=== PATIENT | female | born 1995 | race Caucasian/White ===

== ENCOUNTER 2024-07-18 08:58 | Inpatient (IN) | payer BC, MEDICAID ==
[~2024-07-18] VITALS: Ht 170.2 cm; Wt 73.7 kg
[2024-07-18] MEDS: KETOROLAC TROMETH 30 MG/ML 1ML VIAL IV ONE (09:22)
[2024-07-18] MEDS: LORazepam 2MG/ML-1ML VIAL IV ONE (09:22)
[2024-07-18] MEDS: SODIUM CHLORIDE 0.9% 1,000 ML IV ONE ×5 (09:22→18:04)
[2024-07-18] MEDS: ONDANSETRON HCL 4 MG/2 ML VIAL IV ONE (09:22)
--- NOTE | 2024-07-18 09:25 | ED.PDOC ---
General HPI Comments 29 year old female presents to the ED with chief complaint of flank pain. Patient reports that she has been experiencing 10/10 right sided flank pain since yesterday, worsening over time. Patient denies any dysuria, hematuria, abdominal pain, N/V/D, dizziness, fever, or chills. Chief Complaint: Flank Pain Time Seen by MD: 09:22 Primary Care Provider: MARKUS Reviewed notes: Nurses Notes, Medications, Allergies Allergies: Coded Allergies: NO KNOWN ALLERGIES (Unverified , 10/18/13) Information Source: Patient Mode of Arrival: Ambulatory Severity: Moderate Inability to void: None Timing: Days Duration: Since onset Prehospital treatment: None Onset: Spontaneous Symptoms: None History of: None Location: (R) Flank Modifying factors: None associated signs and symptoms: Flank Pain Past Medical History PAST MEDICAL HISTORY: Anxiety, Depression Surgical History: Denies all surgeries [employer] History: Denies all [employer] Hx Family History Family History: Reviewed,noncontributory to illness Social History Smoker: Cigarettes, Greater Than 1 Pack/Day Alcohol: Occasionally Drugs: Marijuana Lives In: Home Constitutional: denies: chills, diaphoresis, fatigue, fever, malaise, sweats, weakness, others EENTM: denies: blurred vision, double vision, ear bleeding, ear discharge, ear drainage, ear pain, ear ringing, eye pain, eye redness, hearing loss, mouth pa in, mouth swelling, nasal discharge, nose bleeding, nose congestion, nose pain, photophobia, tearing, throat pain, throat swelling, voice changes, others Respiratory: denies: cough, hemoptysis, orthopnea, SOB at rest, shortness of breath, SOB with excertion, stridor, wheezing, others Cardiovascular: denies: chest pain, dizzy spells, diaphoresis, Dyspnea on exertion, edema, irregular heart beat, left arm pain, lightheadedness, palpitations, PND, syncope, others Gastrointestinal: denies: abdomen distended, abdominal pain, blood streaked bowels, constipated, diarrhea, dysphagia, difficulty swallowing, hematemesis, melena, nausea, poor appetite, poor fluid intake, rectal bleeding, rectal pain, vomiting, others Genitourinary: reports: flank pain; denies: abnormal vagina bleeding, burning, dyspareunia, dysuria, frequency, hematuria, incontinence, pain, , vagina discharge, urgency, others Neurological: denies: dizziness, fainting, headache, left sided numbness, left sided weakness, numbness, paresthesia, pre-existing deficit, right sided numbness, right sided weakness, seizure, speech problems, tingling, tremors, weakness, others Musculoskeletal: denies: back pain, gout, joint pain, joint swelling, muscle pain, muscle stiffness, neck pain, others Integumetry: denies: bruises, change in color, change in hair/nails, dryness, laceration, lesions, lumps, rash, wounds, others Allergic/Immunocompromised: denies: Difficulty Healing, Frequent Infections, Hives, Itching, others Hematologic/Lymphatic: denies: anemia, blood clots, easy bleeding, easy bruisi ng, swollen glands, others Endocrine: denies: excessive hunger, excessive sweating, excessive thirst, exce ssive urination, flushing, intolerance to cold, intolerance to heat, unexplained weight gain, unexplained weight loss, others Psychiatric: denies: anxiety, bipolar disorder, depression, hopeless, panic disorder, schizophrenia, sleepless, suicidal, others All Other Systems: Reviewed and Negative Physical Exam General Appearance: Moderate Distress, Normal HEENT: Normal ENT Inspection, PERRL/EOMI Neck: Full Range of Motion, Non-Tender, Normal, Normal Inspection Respiratory: Chest Non-Tender, Lungs Clear, No Accessory Muscle Use, No Respiratory Distress, Normal Breath Sounds Cardiovascular: No Edema, No JVD, No Murmur, No Gallop, Normal Peripheral Pulses, Regular Rate/Rhythm Breast Exam: Deferred Gastrointestinal: No Organomegaly, No Pulsatile Mass, Normal Bowel Sounds, RLQ, Soft Genitalia: Deferred Pelvic: Deferred Rectal: Deferred Extremities: No calf tenderness, Normal capillary refill, Normal inspection, Normal range of motion, Non-tender, No pedal edema Musculoskeletal : Apperance: Normal Neurologic: Alert, serger II-XII nml as Tested, No Motor Deficits, Normal Affect, Normal Mood, No Sensory Deficits Cerebellar Function: NOT DONE Reflexes: NOT DONE Skin: Dry, Normal Color, Warm Peripheral Pulses: 3+ Radial (R), 3+ Radial (L) Lymphatic: No Adenopathy Was a procedure done? Was a procedure done?: No Differential Diagnosis Kidney stone (Female): Musculoskeletal pain, Urinary obstruction, Urolithiasis X-Ray, Labs, Meds, VS Vital Signs Date Time Temp Pulse Resp B/P (MAP) Pulse Ox O2 Delivery O2 Flow Rate FiO2 07/18/24 14:00 74 15 109/75 (86) 100 07/18/24 12:55 65 15 112/68 07/18/24 12:25 67 15 117/70 07/18/24 12:00 98.2 62 15 117/70 (86) 100 98.2 07/18/24 10:38 65 12 111/70 07/18/24 10:08 68 18 108/59 07/18/24 09:57 118/60 07/18/24 09:32 63 17 98 07/18/24 09:31 58 07/18/24 09:31 Room Air* 0 21 07/18/24 09:10 97.6 86 20 144/83 (103) 100 97.6 Lab Test 07/18/24 09:49 07/18/24 09:20 Range/Units White Blood Count 17.4 H 4.4-10.8 10^3/uL Red Blood Count 4.90 4.0-5.20 10^6/uL Hemoglobin 13.8 12.2-16.2 g/dL Hematocrit 41.1 36.0-46.0 % Mean Corpuscular Volume 84.0 80.0-100.0 fL Mean Corpuscular Hemoglobin 28.2 28.0-32.0 pg Mean Corpuscular Hemoglobin Concent 33.5 32.0-36.0 g/dL Red Cell Distribution Width 14.2 11.8-14.3 % Platelet Count 241 140-450 10^3/uL Mean Platelet Volume 7.7 6.9-10.8 fL Neutrophils (%) (Auto) 92.7 H 37.0-80.0 % Lymphocytes (%) (Auto) 5.4 L 10.0-50.0 % Monocytes (%) (Auto) 1.7 0.0-12.0 % Eosinophils (%) (Auto) 0.0 0.0-7.0 % Basophils (%) (Auto) 0.2 0.0-2.0 % Neutrophils # (Auto) 16.2 H 1.6-8.6 10 ^3/uL Lymphocytes # (Auto) 0.9 0.4-5.4 10 ^3/uL Monocytes # (Auto) 0.3 0-1.3 10 ^3/uL Eosinophils # (Auto) 0 0-0.8 10 ^3/uL Basophils # (Auto) 0 0-0.2 10 ^3/uL Nucleated Red Blood Cells 0.0 % Sodium Level 137 136-145 mmol/L Potassium Level 4.0 3.5-5.1 mmol/L Chloride Level 104 98-107 mmol/L Carbon Dioxide Level 25 20-31 mmol/L Anion Gap 8 5-15 Blood Urea Nitrogen 11 9-23 mg/dL Creatinine 0.79 0.550-1.02 mg/dL Glomerular Filtration Rate Calc 104 >90 mL/min BUN/Creatinine Ratio 13.9 10.0-20.0 Serum Glucose 123 H 74-106 mg/dL Calcium Level 9.4 8.7-10.4 mg/dL Urine Color Colorless Yellow Urine Clarity Clear Clear Urine pH 6.0 5.0-9.0 Urine Specific [place] 1.009 1.001-1.035 Urine Protein Negative Negative Urine Ketones Negative Negative Urine Blood Negative Negative /uL Urine Nitrite Negative Negative Urine Bilirubin Negative Negative Urine Urobilinogen Normal Negative mg/dL Urine Leukocyte Esterase Negative Negative /uL Urine RBC 1 0 - 4 /hpf Urine Microscopic WBC 1 0-5 /HPF Urine Squamous Epithelial Cells Few <5 /hpf Urine Bacteria Few H None Seen /hpf Urine Glucose Normal Normal mg/dL Urine Test Negative Negative Current Medications Medications (Trade) Dose Ordered Sig/Kishore Route Start Time Stop Time Status Last Admin Ketorolac Tromethamine (Toradol Injection) 30 mg ONCE ONCE IV 07/18/24 09:30 07/18/24 09:31 DC 07/18/24 09:22 Sodium Chloride 1,000 ml @ 1,000 mls/hr Q1H ONCE IV 07/18/24 09:30 07/18/24 10:29 DC 07/18/24 09:22 Ondansetron HCl (Zofran) 4 mg ONCE ONCE IV 07/18/24 09:30 07/18/24 09:31 DC 07/18/24 09:22 Lorazepam (Ativan Inj) 1 mg ONCE ONCE IV 07/18/24 09:30 07/18/24 09:31 DC 07/18/24 09:22 Sodium Chloride 1,000 ml @ 150 mls/hr Q6H40M ONCE IV 07/18/24 09:30 07/18/24 16:09 07/18/24 11:05 Furosemide (Lasix Injection) 20 mg ONCE ONCE IV 07/18/24 09:30 07/18/24 09:31 DC 07/18/24 09:57 Morphine Sulfate 4 mg ONCE ONCE IV 07/18/24 10:15 07/18/24 10:16 DC 07/18/24 10:08 Ceftriaxone Sodium 50 ml @ 100 mls/hr ONCE ONCE IV 07/18/24 10:30 07/18/24 10:59 DC 07/18/24 10:28 Hydromorphone HCl (Dilaudid Injection) 1 mg ONCE ONCE IV 07/18/24 12:15 07/18/24 12:16 DC 07/18/24 12:25 Sodium Chloride 1,000 ml @ 1,000 mls/hr Q1H ONCE IV 07/18/24 12:15 07/18/24 13:14 DC 07/18/24 13:15 CT Abd/Pel: FINDINGS: Lung bases: Lung bases are clear. Liver: Grossly unremarkable in its noncontrast enhanced appearance. No abnormal density or focal lesion identified. Biliary: No calcified gallstones or biliary ductal dilatation. Spleen: Unremarkable. Pancreas: Grossly unremarkable in its noncontrast enhanced appearance. Adrenal glands: Unremarkable. No mass. Kidneys: No hydronephrosis. No renal or ureteral calculi. Aorta/Vascular: No aneurysm or significant calcification. Retroperitoneum: No mass or lymphadenopathy. Bowel/mesentery: There are a few nonspecific mildly distended gas-filled loops of small mild gaseous distention of colon. No focal transition point to suggest small bowel obstruction. Appendix is visualized and appears unremarkable. Moderate stool in the colon. Pelvic organs: Uterus is anteverted. Suspected small amount of free fluid in the cul-de-sac. Bladder: Small locules of gas are seen in the anterior aspect of the bladder. Abdominal wall: No mass or hernia. Bones: No acute fracture or suspicious intraosseous lesion. IMPRESSION: 1. No hydronephrosis and no renal or ureteral calculi visualized. 2. Small locules of gas in the anterior aspect of the bladder. Gas-forming infection / cystitis not excluded. Correlate with clinical findings. 3. Moderate stool in the colon. There are mildly distended small bowel loops with no focal transition point to suggest small bowel obstruction. 4. Appendix is visualized and appears normal. 5. Small amount of free fluid in the cul-de-sac, likely physiologic. 6. Additional findings as detailed above. Patient alert. Complaining of severe pain. Denies . Vitals stable. Answering all questions. CT scan was done after patient cleared does not show any acute process. Small amount of free fluid in the cul-de-sac most likely physiologic. Check for ovary. There is gas-forming infection in the bladder. Establish intravenous access. Was given fluids. Was given pain medication. Explained to the patient. Continue monitoring. Ultrasound does not reveal any acute process. Pain from ovarian. Images Reviewed?: Images reviewed and evaluated by me Time of 1ST Reevaluation: 10:22 Reevaluation 1ST: Unchanged Patient Education/Counseling: Diagnosis, Treatment Family Education/Counseling: No Family Present Additional Information Previous visit documents reviewed: None The following tests were ordered, and results were reviewed by me: BMP, CBC, UA, CT Abd/Pel Additional Information was gathered from interviewing the following independent historians: None I reviewed and agreed with the following test results read by other providers: CT Abd/Pel I discussed treatment and results with medical personnel and: Patient Departure 1 Departure Time of Disposition: 13:03 Impression: Primary Impression: Acute abdominal pain Additional Impression: Nonspecific colitis Disposition: ADMITTED INPATIENT Admit to: Med Surg Condition: Guarded Critical Care Note Critical Care Time?: No Stability Stability form required: No Heart Score Heart Score: Heart Score Response (Comments) Value History N/A 0 EKG N/A 0 Age N/A 0 Risk Factors N/A 0 Troponin N/A 0 Total 0 I personally scribed for ARIANNA COBOS MD ([email or web address]) on 07/18/24 at 09:25. Electronically submitted by Juan Miguel Reynoso ([email or web address]). I personally scribed for ARIANNA COBOS MD ([email or web address]) on 07/18/24 at 09:52. Electronically submitted by Juan Miguel Reynoso ([email or web address]). I personally scribed for ARIANNA COBOS MD ([email or web address]) on 07/18/24 at 10:19. Electronically submitted by Juan Miguel Reynoso ([email or web address]). ARIANNA COBOS MD Jul 18, 2024 09:25
[2024-07-18] MEDS: FUROSEMIDE 20 MG/2 ML VIAL IV ONE (09:57)
[2024-07-18 10:00] LABS: Basophils # (auto) 0 10 ^3/uL (0-0.2); Basophils % (auto) 0.2 % (0.0-2.0); Eosinophils # (auto) 0 10 ^3/uL (0-0.8); Hematocrit 41.1 % (36.0-46.0); Hemoglobin 13.8 g/dL (12.2-16.2); Lymphocytes # (auto) 0.9 10 ^3/uL (0.4-5.4); Lymphocytes % (auto) 5.4 % (10.0-50.0); Mean Corpuscular Hemoglobin 28.2 pg (28.0-32.0); Mean Corpuscular Hgb Conc. 33.5 g/dL (32.0-36.0); Monocytes # (auto) 0.3 10 ^3/uL (0-1.3); Monocytes % (auto) 1.7 % (0.0-12.0); Neutrophils # (auto) 16.2 10 ^3/uL (1.6-8.6); Neutrophils % (auto) 92.7 % (37.0-80.0); Platelet Count (auto) 241 10^3/uL (140-450); Red Cell Distribution Width 14.2 % (11.8-14.3); White Blood Cell 17.4 10^3/uL (4.4-10.8)
[2024-07-18] MEDS: MORPHINE SULFATE 4 MG/ML SYR/VIAL IV ONE (10:08)
--- NOTE | 2024-07-18 10:13 | DVH ---
CLINICAL INFORMATION: 29 years old, Female; stone. TECHNIQUE: Axial CT images of the abdomen and pelvis were obtained without IV contrast. Coronal and s agittal reformatted images were obtained, reviewed, and stored. Evaluation of the parenchymal organs is limited without IV contrast. Evaluation of the bowel and mesentery is limited without oral contras t. All CT scans at this medical facility are performed using dose modulation techniques as appropriat e to a performed exam including the following: Automated exposure control was utilized; adjustment of the MA and/or KV according to patient size; and use of iterative reconstruction technique. CTDIvol = 6.81 mGy DLP = 375.52 mGy-cm COMPARISON: None FINDINGS: Lung bases: Lung bases are clear. Liver: Grossly unremarkable in its noncontrast enhanced appearance. No abnormal density or focal lesi on identified. Biliary: No calcified gallstones or biliary ductal dilatation. Spleen: Unremarkable. Pancreas: Grossly unremarkable in its noncontrast enhanced appearance. Adrenal glands: Unremarkable. No mass. Kidneys: No hydronephrosis. No renal or ureteral calculi. Aorta/Vascular: No aneurysm or significant calcification. Retroperitoneum: No mass or lymphadenopathy. Bowel/mesentery: There are a few nonspecific mildly distended gas-filled loops of small mild gaseous distention of colon. No focal transition point to suggest small bowel obstruction. Appendix is visua lized and appears unremarkable. Moderate stool in the colon. Pelvic organs: Uterus is anteverted. Suspected small amount of free fluid in the cul-de-sac. Bladder: Small locules of gas are seen in the anterior aspect of the bladder. Abdominal wall: No mass or hernia. Bones: No acute fracture or suspicious intraosseous lesion. IMPRESSION: 1. No hydronephrosis and no renal or ureteral calculi visualized. 2. Small locules of gas in the anterior aspect of the bladder. Gas-forming infection / cystitis not e xcluded. Correlate with clinical findings. 3. Moderate stool in the colon. There are mildly distended small bowel loops with no focal transition point to suggest small bowel obstruction. 4. Appendix is visualized and appears normal. 5. Small amount of free fluid in the cul-de-sac, likely physiologic. 6. Additional findings as detailed above.
[2024-07-18] MEDS: cefTRIAXone 1GM/50ML D5W 50 ML IV ONE (10:28)
[2024-07-18 10:31] LABS: Chloride 104 mmol/L (98-107); Sodium 137 mmol/L (136-145)
[2024-07-18 10:32] LABS: Anion Gap 8 (5-15); Carbon Dioxide 25 mmol/L (20-31)
[2024-07-18 10:33] LABS: Calcium 9.4 mg/dL (8.7-10.4)
[2024-07-18 10:37] LABS: BUN/Creatinine Ratio 13.9 (10.0-20.0); Blood Urea Nitrogen 11 mg/dL (9-23)
[2024-07-18 10:49] LABS: Glucose 123 mg/dL (74-106)
[2024-07-18 12:24] LABS: Urine Bacteria FEW /hpf (None Seen); Urine Blood Negative /uL (Negative); Urine Clarity Clear (Clear); Urine Color Colorless (Yellow); Urine Protein, UAD Negative (Negative); Urine Specific Gravity 1.009 (1.001-1.035); Urine Squamous Epithelial Cell FEW /hpf (<5); Urine Urobilinogen Normal (Negative); Urine WBC 1 /HPF (0-5)
[2024-07-18] MEDS: HYDROmorphone HCL 2 MG/ML VL/or syr IV ONE (12:25)
--- NOTE | 2024-07-18 14:24 | DVH ---
Procedure: US PELVIC Study Date and Requested Time: 07/18/2024 01:24 PM Study Description: US PELVIC History: ovary torsion Comparison: None Technique: Multiple transabdominal and transvaginal high resolution crowley-scale images obtained of the uterus and adnexa with color Doppler for evaluation of adnexal blood flow and vascularity as indicat ed. Findings: Uterus measures 9.3 x 5.2 x 5.2 cm, with homogeneous echotexture. Endometrium within normal limits, m easuring 1.2 cm in thickness with smooth contour. Cervix within normal limits. Right ovary measures 6.4 x 4.1 x 1.9 cm . Left ovary measures 4.9 x 3.1 x 3.9 cm. Normal ovarian colo r Doppler flow bilaterally. No evidence of cystic or solid ovarian lesions. Small amount of free fluid within the cul-de-sac which may be physiologic. Impression: Bilateral ovaries appear prominent, [id number]. There is normal ovarian color Doppler fl ow bilaterally. Ovarian torsion-detorsion can not be excluded.
[2024-07-18] MEDS ORDERED: MORPHINE SULFATE 4 MG/ML SYR/VIAL IV PRN (17:45)
[2024-07-18] MEDS ORDERED: ONDANSETRON HCL 4 MG/2 ML VIAL IV PRN (17:45)
[2024-07-18] MEDS ORDERED: HYDROMORPHONE HCL 1 MG/ML INJ IV PRN (17:45)
[2024-07-18] MEDS ORDERED: ACETAMINOPHEN 325 MG TAB PO PRN (17:45)
[2024-07-18] MEDS ORDERED: [UNRECOGNIZED DRUG - CODE] PO (17:46)
--- NOTE | 2024-07-18 17:54 | DVHHP2 ---
History of Present Illness Reason for Visit: right flank pain History of Present Illness Rafita Wynn is a 29-year-old female with no significant past medical history, who comes in with complaints of severe right flank pain. Patient states that she began feeling the pain yesterday while working, by the time she was home the pain had increased. At 0300 the pain was 10/10 and woke her up. She was unable to do anything to relieve the pain, so she came to the ER. Psych: Anxiety, Depression Past Surgical History: None Smoke: No ALCOHOL: occassional Drugs: None Lives: Alone Domestic Violence: Neg Review of Systems Constitutional: No: Fever, Chills, Sweats, Weakness, Malaise, Other Eyes: No: Pain, Vision change, Conjunctivae inflammation, Eyelid inflammation, Other, Redness ENT: No: Ear pain, Ear discharge, Nose pain, Nose discharge, Nose congestion, Mouth pain, Mouth swelling, Throat pain, Throat swelling, Other Respiratory: No: Cough, Dry, Shortness of breath, SOB with excertion, Wheezing, Hemoptysis, Pleuritic Pain, Sputum, Wheezing, Other Cardiovascular: No: Chest Pain, Palpitations, Orthopnea, Paroxysmal Noc. Dyspnea, Edema, Lt Headedness, Other Gastrointestinal: Nausea, Abdominal Pain (right lower quad); No: Vomiting, Diarrhea, Constipation, Melena, Hematochezia, Other Genitourinary: No Dysuria, No Frequency, No Incontinence, No Hematuria, No Retention, No Other Musculoskeletal: No: other, neck pain, shoulder pain, arm pain, back pain, hand pain, leg pain, foot pain Skin: No: Rash, Lesions, Jaundice, Bruising, Other Neurological: No: Weakness, Numbness, Incoordination, Change in speech, Confusion, Seizures, Other Allergies: Coded Allergies: NO KNOWN ALLERGIES (Unverified , 10/18/13) Exam Vital Signs Vital Signs Date Time Temp Pulse Resp B/P (MAP) Pulse Ox O2 Delivery O2 Flow Rate FiO2 07/18/24 16:03 66 15 94/45 (61) 97 07/18/24 12:00 98.2 98.2 07/18/24 09:31 Room Air* 0 21 General Appearance: Alert, Oriented X3, Cooperative, severe distress HEENT: Atraumatic, PERRLA Respiratory: Clear to auscultation, Normal air movement Cardiovascular: Normal S1, Normal S2, Other (SR-ST) Abdominal: Normal bowel sounds, Soft, Other (severe right lower quad pain) Extremities: No clubbing, No cyanosis, No edema, Normal pulses, No tenderness/swelling Skin: No rashes, No significant lesion Neuro: Normal gait, Normal speech, Strength at 5/5 X4 ext Psych/Mental Status: Mental status NL, Mood NL Labs/Xrays Labs Test 07/18/24 09:49 07/18/24 09:20 Range/Units White Blood Count 17.4 H 4.4-10.8 10^3/uL Red Blood Count 4.90 4.0-5.20 10^6/uL Hemoglobin 13.8 12.2-16.2 g/dL Hematocrit 41.1 36.0-46.0 % Mean Corpuscular Volume 84.0 80.0-100.0 fL Mean Corpuscular Hemoglobin 28.2 28.0-32.0 pg Mean Corpuscular Hemoglobin Concent 33.5 32.0-36.0 g/dL Red Cell Distribution Width 14.2 11.8-14.3 % Platelet Count 241 140-450 10^3/uL Mean Platelet Volume 7.7 6.9-10.8 fL Neutrophils (%) (Auto) 92.7 H 37.0-80.0 % Lymphocytes (%) (Auto) 5.4 L 10.0-50.0 % Monocytes (%) (Auto) 1.7 0.0-12.0 % Eosinophils (%) (Auto) 0.0 0.0-7.0 % Basophils (%) (Auto) 0.2 0.0-2.0 % Neutrophils # (Auto) 16.2 H 1.6-8.6 10 ^3/uL Lymphocytes # (Auto) 0.9 0.4-5.4 10 ^3/uL Monocytes # (Auto) 0.3 0-1.3 10 ^3/uL Eosinophils # (Auto) 0 0-0.8 10 ^3/uL Basophils # (Auto) 0 0-0.2 10 ^3/uL Nucleated Red Blood Cells 0.0 % Sodium Level 137 136-145 mmol/L Potassium Level 4.0 3.5-5.1 mmol/L Chloride Level 104 98-107 mmol/L Carbon Dioxide Level 25 20-31 mmol/L Anion Gap 8 5-15 Blood Urea Nitrogen 11 9-23 mg/dL Creatinine 0.79 0.550-1.02 mg/dL Glomerular Filtration Rate Calc 104 >90 mL/min BUN/Creatinine Ratio 13.9 10.0-20.0 Serum Glucose 123 H 74-106 mg/dL Calcium Level 9.4 8.7-10.4 mg/dL Urine Color Colorless Yellow Urine Clarity Clear Clear Urine pH 6.0 5.0-9.0 Urine Specific [place] 1.009 1.001-1.035 Urine Protein Negative Negative Urine Ketones Negative Negative Urine Blood Negative Negative /uL Urine Nitrite Negative Negative Urine Bilirubin Negative Negative Urine Urobilinogen Normal Negative mg/dL Urine Leukocyte Esterase Negative Negative /uL Urine RBC 1 0 - 4 /hpf Urine Microscopic WBC 1 0-5 /HPF Urine Squamous Epithelial Cells Few <5 /hpf Urine Bacteria Few H None Seen /hpf Urine Glucose Normal Normal mg/dL Urine Test Negative Negative Procedure: US PELVIC Comparison: None Technique: Multiple transabdominal and transvaginal high resolution crowley-scale images obtained of the uterus and adnexa with color Doppler for evaluation of adnexal blood flow and vascularity as indicated. Findings: Uterus measures 9.3 x 5.2 x 5.2 cm, with homogeneous echotexture. Endometrium within normal limits, measuring 1.2 cm in thickness with smooth contour. Cervix within normal limits. Right ovary measures 6.4 x 4.1 x 1.9 cm . Left ovary measures 4.9 x 3.1 x 3.9 cm. Normal ovarian color Doppler flow bilaterally. No evidence of cystic or mili d ovarian lesions. Small amount of free fluid within the cul-de-sac which may be physiologic. Impression: Bilateral ovaries appear prominent, [id number]-left. There is normal ovarian color Doppler flow bilaterally. Ovarian torsion-detorsion can not be excluded. CT images of the abdomen and pelvis were obtained without IV contrast. FINDINGS: Lung bases: Lung bases are clear. Liver: Grossly unremarkable in its noncontrast enhanced appearance. No abnormal density or focal lesion identified. Biliary: No calcified gallstones or biliary ductal dilatation. Spleen: Unremarkable. Pancreas: Grossly unremarkable in its noncontrast enhanced appearance. Adrenal glands: Unremarkable. No mass. Kidneys: No hydronephrosis. No renal or ureteral calculi. Aorta/Vascular: No aneurysm or significant calcification. Retroperitoneum: No mass or lymphadenopathy. Bowel/mesentery: There are a few nonspecific mildly distended gas-filled loops of small mild gaseous distention of colon. No focal transition point to suggest small bowel obstruction. Appendix is visualized and appears unremarkable. Moderate stool in the colon. Pelvic organs: Uterus is anteverted. Suspected small amount of free fluid in the cul-de-sac. Bladder: Small locules of gas are seen in the anterior aspect of the bladder. Abdominal wall: No mass or hernia. Bones: No acute fracture or suspicious intraosseous lesion. IMPRESSION: 1. No hydronephrosis and no renal or ureteral calculi visualized. 2. Small locules of gas in the anterior aspect of the bladder. Gas-forming infection / cystitis not excluded. Correlate with clinical findings. 3. Moderate stool in the colon. There are mildly distended small bowel loops with no focal transition point to suggest small bowel obstruction. 4. Appendix is visualized and appears normal. 5. Small amount of free fluid in the cul-de-sac, likely physiologic. 6. Additional findings as detailed above. 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, CT Ab/Pel with IV contrast, Renal ultrasound, IV hydration, IV antibiotics, Plan discussed with: Patient My Orders Orders - SHERI REYES Procedure Category Date Status Time * Printer Assistant Consultation CONS 07/18/24 Transmitted 16:57 Kidney US 07/18/24 Logged 17:01 Ct Ab Pel With Iv Con CT 07/18/24 Logged Only 17:01 Beta Hcg, Quantitative LAB 07/18/24 Logged 17:01 Admit ADMIT 07/18/24 Transmitted 17:31 Code Status CODE 07/18/24 Transmitted 17:31 Ondansetron Hcl PHA 07/18/24 Transmitted (Zofran) 17:45 Complete Blood Count LAB 07/19/24 Verified 04:00 Comprehensive LAB 07/19/24 Verified Metabolic Panel 04:00 Npo (Nothing By DIET 07/18/24 Transmitted Mouth) Diet Dinner Condition: Critical PRUDENCE 07/18/24 Transmitted 17:31 Acetaminophen Tablet PHA 07/18/24 Transmitted (Tylenol Tablet) 17:45 Hydromorphone Hcl Inj PHA 07/18/24 Transmitted (Dilaudid Innjecti 17:45 Morphine Sulfate PHA 07/18/24 Transmitted Injection 17:45 Date of Service: Jul 18, 2024 Billing Provider: SHERI REYES Common Visit Codes: 80394-[id number] INP/OBS CARE (HIGH) SHERI REYES Jul 18, 2024 17:54
--- NOTE | 2024-07-18 18:42 | DVH ---
BILATERAL RENAL ULTRASOUND CLINICAL HISTORY: Possible cystitis COMPARISON: CT obtained earlier the same day. TECHNIQUE: High-resolution real-time grayscale imaging is performed. FINDINGS: Right kidney: Measures 12.1 cm in length. Mild right hydronephrosis noted. No sizable, shadowing calc [place]. Normal cortical thickness and echogenicity. Left kidney: Measures 11.2 cm in length. No hydronephrosis. Normal cortical thickness and echogenicit y. Bladder: Distended. Prevoid volume 635 mL. Emt Basic reports that the patient does not feel the ne ed to void. Debris is noted within the dependent bladder. IMPRESSION: Mild right hydronephrosis. Distended urinary bladder with layering debris. Cystitis is again included in the differential diagno sis.
--- NOTE | 2024-07-18 18:44 | DVH ---
INDICATION: RLQ PAIN TECHNIQUE: Graded compression technique along with Multiple real-time sonographic images were obtain ed for evaluation of the right lower quadrant. FINDINGS: The appendix was not visualized. No free fluid or lymph nodes are seen on this exam. IMPRESSION: 1.Nonvisualization of the appendix, thus cannot exclude appendicitis.
--- NOTE | 2024-07-18 19:07 | DVH ---
Procedure: CT CT AB PEL WITH IV CON ONLY 07/18/2024 06:24 PM Indication: Pain Comparison Study: None Technique: Axial images were obtained and reformatted in coronal and sagittal planes. All CT scans at this medical facility are performed using dose modulation techniques as appropriate to a performed e xam including the following: Automated exposure control was utilized; adjustment of the MA and/or KV according to patient size; and use of iterative reconstruction technique. CT Dose: CTDI volume is 9.6 8 mGy. Dose-length product is 523.07 mGy*cm FINDINGS: Lower Chest: Unremarkable. Hepatobiliary: Unremarkable. Spleen: Unremarkable. Pancreas: Unremarkable. Adrenal Glands: Unremarkable. tract: The kidneys are normal in size bilaterally . Mild fullness of the bilateral renal pelvises .. Suboptimal evaluation of bladder due to lack of distention. Few subcentimeter foci are seen in the non dependent part of bladder lumen. Is probably related to recent instrumentation. Recommend corre lation with GI tract: The stomach is grossly normal in appearance. No evidence of small bowel obstruction. The la rge bowel is unremarkable. The appendix is normal. Lymphatics: No mesenteric, retroperitoneal or periportal lymphadenopathy. Vasculature: The abdominal aorta is normal in in caliber. Pelvic Organs: Anteverted uterus. Prominent ovaries. A 2 cm crenulated cyst seen in the left ovary mo st likely corpus luteum ovulation. Bones/soft tissues: No acute abnormality. Other: None. IMPRESSION: 1. Few subcentimeter foci in the bladder lumen likely related to recent instrumentation. Correlate w ith history of recent Barrera catheter placement. The differential diagnosis includes fistula formation with an adjacent gas containing organ.Mild fullness of the bilateral 2. Renal pelvises may represent hydronephrosis or stasis. No urinary calculi. No CT evidence of pyel onephritis. 3. Prominent ovaries. A 2 cm crenulated cyst is seen in the left ovary which is probably corpus luteu m ovulation. Suggest correlation with pelvic sonogram.
[2024-07-18] MEDS: SODIUM CHLORIDE 0.9% 1,000 ML IV SCH (19:30)
[2024-07-18 20:57] LABS: INR 1.03 (0.9-1.15); Partial Thromboplastin Time 26.3 SEC (24.5-34.5); Prothrombin Time 10.9 sec (9.3-11.8)
--- NOTE | 2024-07-18 21:36 | DVHINCON2 ---
Date of service: Jul 18, 2024 Reason for Consultation rule out ovarian torsion History of Present Illness 29yo Female with RLQ pain, 10/10 pain that decreased to 4/10 pain after pain meds. It started as a mild dull ache yesterday at 1999 and became severe pain by morning which made her come into the ED. Pt reports loss of appetite today due to pain. Last BM was 2 days ago, usually has BM every other day. OB hx: , NSVDx1, SABx1 VACUUM TESTER CANS hx: denies endometriosis, pt reports having mild ovulation pain every month but this feels worse and she is not ovulating right now, LMP 06/25/24, menstrual cycle is average of 30 days. Past Medical History denies Past Surgical History denies Family History denies Social History denies Allergies: Coded Allergies: NO KNOWN ALLERGIES (Unverified , 10/18/13) Allergies NKDA Home Meds Reported Medications Amphetamine/Dextroamphetamine (Amphetamine/Dextroampheta) 7.5 Mg Tab, 15 MG PO BID 07/18/24 Current Medications Current Medications Medications (Trade) Dose Ordered Sig/Kishore Route PRN Reason Start Time Stop Time Status Last Admin Ondansetron HCl (Zofran) 4 mg Q4HP PRN IV NAUSEA / VOMITING 07/18/24 17:45 Acetaminophen (Tylenol Tablet) 650 mg Q6HP PRN PO PAIN SCALE 1-3 OR TEMP>100.4 07/18/24 17:45 Hydromorphone HCl (Dilaudid Innjection) 1 mg Q4HPRN PRN IV SEVERE PAIN (7-10 PAIN SCALE) 07/18/24 17:45 Morphine Sulfate 4 mg Q4HPRN PRN IV MODERATE PAIN (4-6 PAIN SCALE) 07/18/24 17:45 Sodium Chloride 1,000 ml @ 125 mls/hr Q8H IV 07/18/24 17:45 07/18/24 19:30 Patient Own Medication 15 mg BID PO 07/18/24 22:00 Ceftriaxone Sodium 50 ml @ 100 mls/hr DAILY@09 IV 07/19/24 09:00 Review of Systems Constitutional: no fever, chill, weight loss HEENT: no eye pain, no hearing loss, no oral lesion, no scleral icterus Heart: no chest pain, no chest pressure Lung: no cough, no dyspnea with exertion Abdomen: see HPI : no pain with urination, normal appearing urine Musculoskeletal: no joint pain, no muscle pain Neurological: no seizure, no loss of sensation, no weakness in extremities Pysch: no depression, no anxiety Derm: no rash, no jaundice Vital Signs Vital Signs Date Time Temp Pulse Resp B/P (MAP) Pulse Ox O2 Delivery O2 Flow Rate FiO2 07/18/24 18:04 98.2 87 18 98 98.2 07/18/24 16:03 94/45 (61) 07/18/24 09:31 Room Air* 0 21 Physical Exam Pt consents to digital pelvic exam Pelvic exam: WNL except rebound tenderness at RLQ above pubic bone when palpated during pelvic exam, no tenderness on LLQ. no CMT. not febrile to touch. Labs/Diagnostic Data sono and CT scan reviewed with Dr. Mercado Labs Test 07/18/24 20:30 07/18/24 09:49 07/18/24 09:20 Range/Units Prothrombin Time 10.9 9.3-11.8 sec Prothrombin Time INR 1.03 0.9-1.15 Activated Partial Thromboplast Time 26.3 24.5-34.5 SEC White Blood Count 17.4 H 4.4-10.8 10^3/uL Red Blood Count 4.90 4.0-5.20 10^6/uL Hemoglobin 13.8 12.2-16.2 g/dL Hematocrit 41.1 36.0-46.0 % Mean Corpuscular Volume 84.0 80.0-100.0 fL Mean Corpuscular Hemoglobin 28.2 28.0-32.0 pg Mean Corpuscular Hemoglobin Concent 33.5 32.0-36.0 g/dL Red Cell Distribution Width 14.2 11.8-14.3 % Platelet Count 241 140-450 10^3/uL Mean Platelet Volume 7.7 6.9-10.8 fL Neutrophils (%) (Auto) 92.7 H 37.0-80.0 % Lymphocytes (%) (Auto) 5.4 L 10.0-50.0 % Monocytes (%) (Auto) 1.7 0.0-12.0 % Eosinophils (%) (Auto) 0.0 0.0-7.0 % Basophils (%) (Auto) 0.2 0.0-2.0 % Neutrophils # (Auto) 16.2 H 1.6-8.6 10 ^3/uL Lymphocytes # (Auto) 0.9 0.4-5.4 10 ^3/uL Monocytes # (Auto) 0.3 0-1.3 10 ^3/uL Eosinophils # (Auto) 0 0-0.8 10 ^3/uL Basophils # (Auto) 0 0-0.2 10 ^3/uL Nucleated Red Blood Cells 0.0 % Sodium Level 137 136-145 mmol/L Potassium Level 4.0 3.5-5.1 mmol/L Chloride Level 104 98-107 mmol/L Carbon Dioxide Level 25 20-31 mmol/L Anion Gap 8 5-15 Blood Urea Nitrogen 11 9-23 mg/dL Creatinine 0.79 0.550-1.02 mg/dL Glomerular Filtration Rate Calc 104 >90 mL/min BUN/Creatinine Ratio 13.9 10.0-20.0 Serum Glucose 123 H 74-106 mg/dL Calcium Level 9.4 8.7-10.4 mg/dL Beta HCG, Quantitative 0.2 L 1.5-4.2 mIU/mL Urine Color Colorless Yellow Urine Clarity Clear Clear Urine pH 6.0 5.0-9.0 Urine Specific [place] 1.009 1.001-1.035 Urine Protein Negative Negative Urine Ketones Negative Negative Urine Blood Negative Negative /uL Urine Nitrite Negative Negative Urine Bilirubin Negative Negative Urine Urobilinogen Normal Negative mg/dL Urine Leukocyte Esterase Negative Negative /uL Urine RBC 1 0 - 4 /hpf Urine Microscopic WBC 1 0-5 /HPF Urine Squamous Epithelial Cells Few <5 /hpf Urine Bacteria Few H None Seen /hpf Urine Glucose Normal Normal mg/dL Urine Test Negative Negative Primary Diagnosis pelvic pain 2' Diagnosis/Comorbidities rule out right ovarian torsion Plan Dr. Mercado spoke with Primary RN Fco and pt. Plan is for Dr. Mercado to do pelvic/abdominal laparoscopy on 07/19/24 at 0500. Pt is NPO starting at 2100. Coag labs and T&S ordered. Plan discussed with: Patient, Spouse, Other (Fco WILKINSON) Visit Coding OBGYN Date of Service: Jul 18, 2024 Billing Provider: KENDAL MERCADO DO DIRECTOR BIOLOGICS Common Visit Codes: CONSULTATION ONLY NICOL ROCHA CNM Jul 18, 2024 21:36
[2024-07-18 22:37] VITALS: BP 107/59; PULSE 78; RESP 18; TEMP 98; O2SAT 96
[2024-07-18 22:55] VITALS: BP 107/59; PULSE 78; RESP 18; TEMP 98; O2SAT 96
[2024-07-19 01:00] VITALS: BP 97/40; PULSE 81; RESP 19; TEMP 98.2; O2SAT 96
[2024-07-19] MEDS ORDERED: SUCCINYLCHOLINE CHLORIDE 20 MG/ML 10ML VIAL IV ONE (04:00)
[2024-07-19] MEDS ORDERED: fentaNYL CITRATE 100 MCG/2 ML VL ONE ×2 (04:01→04:49)
[2024-07-19] MEDS ORDERED: PROPOFOL 10 MG/ML 20 ML IV ONE (04:01)
[2024-07-19 04:06] VITALS: BP 110/60; PULSE 58; RESP 18; TEMP 98; O2SAT 93
[2024-07-19] MEDS ORDERED: ceFAZolin 2 GM/D5W100ml 100 ML IV ONE (04:19)
[2024-07-19] MEDS ORDERED: DexAMETHasone SOD PHOS 10MG/1ML VIAL INJ ONE (04:33)
[2024-07-19] MEDS ORDERED: ONDANSETRON HCL 4 MG/2 ML VIAL ONE (04:33)
[2024-07-19] MEDS ORDERED: ROCURONIUM 10MG/ML 10ML VIAL IV ONE (04:35)
[2024-07-19] MEDS ORDERED: SUGAMMADEX 200mg/2ml Vial (100MG/ML) IV ONE (05:01)
[2024-07-19] MEDS ORDERED: ePHEDrine SULFATE 50 MG/ML AMP ONE (05:03)
--- NOTE | 2024-07-19 05:24 | DVHHP ---
ADMIT DATE: 07/18/2024 CHIEF COMPLAINT: Abdominal pain. HISTORY OF PRESENT ILLNESS: The patient is a 29-year-old 1, para 1, admitted for abdominal pain. The patient had severe flank pain, did not get relieved with any pain medication initially. Her kidney ultrasound is negative. UA was negative. Her pelvic ultrasound reveals 6 cm ovary on right, 5 com on left, cannot rule out torsion. The patient has no history of endometriosis, dysmenorrhea or dyspareunia. She has regular menses. PAST MEDICAL HISTORY: Anxiety, depression. PAST SURGICAL HISTORY: None. SOCIAL HISTORY: None. FAMILY HISTORY: None. OBSTETRIC AND GYNECOLOGIC HISTORY: One normal vaginal delivery. REVIEW OF SYSTEMS: Consistent with HPI. PHYSICAL EXAMINATION: VITAL SIGNS: Stable, afebrile. HEENT: Within normal limits. CARDIOVASCULAR: Regular rate and rhythm. LUNGS: Clear to auscultation. BREASTS: Symmetrical. No masses. ABDOMEN: Soft. No rigidity or rebound. Some right lower quadrant tenderness and voluntary guarding. PELVIC: External genitalia within normal limits. Vagina normal. Cervix grossly normal-appearing. Uterus 8 weeks' size. Adnexa, some tenderness in right adnexa, left normal. EXTREMITIES: No clubbing, cyanosis or edema. IMPRESSION: Abdominal pain/pelvic pain, rule out torsion. PLAN: Laparoscopy, possible removal of affected tube or ovary or both. Possible blood transfusion, possible exploratory laparotomy. Informed consent obtained. Risks, complication of surgery including infection, bleeding, hematoma formation, injury to bowel, bladder, surrounding organs, possibility of DVT, pulmonary embolism, risk of anesthesia discussed with the patient. Options reviewed. All questions answered. The patient fully understands. She wishes to proceed with planned procedure. DO STEPHON Kumar TID: [id number] RECEIPT: [id number]
[2024-07-19 05:38] LABS: Basophils # (auto) 0 10 ^3/uL (0-0.2); Basophils % (auto) 0.3 % (0.0-2.0); Eosinophils # (auto) 0.1 10 ^3/uL (0-0.8); Eosinophils % (auto) 0.7 % (0.0-7.0); Hematocrit 36.7 % (36.0-46.0); Hemoglobin 12.6 g/dL (12.2-16.2); Lymphocytes # (auto) 2.6 10 ^3/uL (0.4-5.4); Lymphocytes % (auto) 24.1 % (10.0-50.0); Mean Corpuscular Hemoglobin 28.9 pg (28.0-32.0); Mean Corpuscular Hgb Conc. 34.4 g/dL (32.0-36.0); Mean Corpuscular Volume 83.9 fL (80.0-100.0); Monocytes # (auto) 0.7 10 ^3/uL (0-1.3); Monocytes % (auto) 6.5 % (0.0-12.0); Neutrophils # (auto) 7.4 10 ^3/uL (1.6-8.6); Neutrophils % (auto) 68.4 % (37.0-80.0); Nucleated Red Blood Cells % 0.2 %; Platelet Count (auto) 274 10^3/uL (140-450); Red Blood Cells 4.37 10^6/uL (4.0-5.20); White Blood Cell 10.9 10^3/uL (4.4-10.8)
[2024-07-19 06:00] LABS: Alanine Aminotransferase 13 U/L (7-40); Anion Gap 6 (5-15); Blood Urea Nitrogen 10 mg/dL (9-23); Carbon Dioxide 26 mmol/L (20-31); Glucose 96 mg/dL (74-106); Potassium 3.8 mmol/L (3.5-5.1); Sodium 143 mmol/L (136-145); Total Protein 5.8 g/dL (5.7-8.2)
[2024-07-19] MEDS: Lidocaine/Epinephrine 1%-1:100,000 30ML VL ONE (06:00)
[2024-07-19] MEDS: BUPIVACAINE 0.25% INJ 50ML VIAL ONE (06:00)
[2024-07-19 06:01] LABS: Albumin 3.7 g/dL (3.2-4.8); Bilirubin, Total 0.4 mg/dL (0.2-1.0)
[2024-07-19 06:14] VITALS: RESP 13; O2SAT 98
[2024-07-19] MEDS ORDERED: DOCUSATE SOD 100 MG CAP PO PRN (06:15)
[2024-07-19] MEDS ORDERED: BISACODYL 10 MG RECT SUPP PR PRN (06:15)
[2024-07-19] MEDS ORDERED: LACTATED RINGER'S 1,000 ML IV SCH (06:15)
[2024-07-19 06:16] LABS: Alkaline Phosphatase 38 U/L (46-116); Aspartate Aminotransferase < 8 U/L (13-40); Chloride 111 mmol/L (98-107)
[2024-07-19] MEDS ORDERED: ACETAMINOPHEN IV 1000 MG/100ML (10MG/ML) IV PRN (06:30)
[2024-07-19] MEDS ORDERED: HYDROmorphone HCL 2 MG/ML VL/or syr IV PRN ×2 (06:30)
[2024-07-19] MEDS ORDERED: MEPERIDINE HCL (25 MG/ML) 1ML VIAL IV PRN (06:30)
[2024-07-19] MEDS ORDERED: ONDANSETRON HCL 4 MG/2 ML VIAL IV ONE (06:30)
[2024-07-19 09:00] VITALS: BP 91/46; PULSE 70; RESP 18; TEMP 98.3; O2SAT 98
[2024-07-19] MEDS ORDERED: cefTRIAXone 1GM/50ML D5W 50 ML IV SCH (09:00)
--- NOTE | 2024-07-19 09:07 | POSTOP ---
Post-Operative Note Post-Operative Note Preop Diagnosis abd pain,pelvic pain Postop Diagnosis: same Operation performed laparoscopy Specimen na Anesthesia: General Anesthesiologist: lori Blood Loss(fluid mgmt) 20ml Surgeon Kendal Mecrado Side Splitter beck Implant na Complications & Mgmt none Additional Remarks intraop findings nl uterus and ovaries Date 07/19/24 Time 09:05 Visit Coding OBGYN Date of Service: Jul 19, 2024 Billing Provider: KENDAL MERCADO DO GEOSCIENCES PROFESSOR Common Visit Codes: 00837-[id number] INP/OBS CARE(HIGH) GEOSCIENCES PROFESSOR Procedure Codes: 46433-[id number] LAPROSCOPIC KENDAL MERCADO DO Jul 19, 2024 09:07
[2024-07-19] MEDS ORDERED: DOCU-94 PO (09:08)
[2024-07-19] MEDS ORDERED: IBUP-1456 PO (09:08)
[2024-07-19] MEDS ORDERED: ZOFR4T PO (09:08)
[2024-07-19] MEDS ORDERED: HYDR-4072 PO (09:08)
[2024-07-19] MEDS ORDERED: CIPR-173 PO (09:09)
[2024-07-19] MEDS: SIMETHICONE 80 MG CHEWABLE TABLET PO SCH (11:32)
[2024-07-19] MEDS: HYDROcodone-ACET 5/325MG TAB PO PRN (11:36)
--- NOTE | 2024-07-19 11:55 | DVHOP ---
DATE OF SURGERY: 07/19/2024 PREOPERATIVE DIAGNOSES: Acute abdominal pain, pelvic pain, rule out ovarian torsion. POSTOPERATIVE DIAGNOSIS: Acute abdominal pain, resolved. No evidence of torsion. SURGEON: Josefa Mercado DO SENIOR CLERK: Dr. Matias ANESTHESIA: General. ANESTHESIOLOGIST: Dr. Goddard FINDINGS: External genitalia within normal limits. Vagina normal. Cervix grossly normal. Uterus 8 weeks' size. Adnexa nonpalpable. Intraoperative evaluation revealed no evidence of torsion. Bilateral ovaries normal. Right ovary larger than left. No evidence of ischemia and necrosis of any tube or ovary. TISSUE TO PATHOLOGY: None. ESTIMATED BLOOD LOSS: 20 mL. DESCRIPTION OF PROCEDURE: The patient was taken to the operating room where she was placed under general anesthesia. She was then prepped and draped in the usual sterile manner in dorsal lithotomy position. Bladder was emptied using straight catheter. Examination under anesthesia revealed above findings. A weighted speculum was placed in the vagina. Anterior lip of the cervix was grasped using single tooth tenaculum. Cervix was dilated. HUMI catheter was placed. Attention was then turned to the abdomen where a Veress needle was introduced in the umbilical region. Abdomen was distended with 3 liters of CO2. A 5 mm trocar was introduced using direct visualization. Another 5 mm trocar was placed in the suprapubic region. Survey of the abdomen and pelvis revealed normal finding. There was no evidence of any bleeding or torsion of ovaries. At this point, all instruments were removed from abdomen and pelvis. Incisional ports were closed using 2-0 Vicryl. The HUMI was removed from the cervix. No bleeding was noted. Estimated blood loss was noted to be 20 mL. The patient tolerated the procedure well. She was taken to recovery room in stable condition. DO HIRAM Kumar/LEELEE TID: [id number] RECEIPT: [id number]
--- NOTE | 2024-07-19 12:30 | DVHDS2 ---
Physician Discharge Progress N Final Diagnosis: s/p laparoscopy Operations or Procedures: Operations or Procedures laparoscopy Condition on Discharge: Good Disposition: Home Discharge Instructions: Diet: Regular Activity: Light activity Follow Up/Referral: next wednesday Medications: elayne herr Follow Up Care: Specialist: 1w Discharge Statement: "Patient was advised to return to the ER or call 911 if any headaches, dizziness, shortness of breath, chest pain, abdominal pain, bleeding, fevers, or worsening of medical condition. Patient was counseled about treatment plan, medications, possible side effects, patientverbalized understanding. All questions were answered to the best of my ability. This discharge took greater then 30 minutes in planning, reviewing documentation, counseling the patient, and discussing with other team members." Visit Coding OBGYN Date of Service: Jul 19, 2024 Billing Provider: KENDAL LOZOYA DO INTERNATIONAL SPECIALIST Common Visit Codes: 30532-ZBC/OBS SAME DATE (HIGH) INTERNATIONAL SPECIALIST Consultation Codes: 12983-Q/U INPATIENT CONSULT (HIGH) INTERNATIONAL SPECIALIST Procedure Codes: 30122-[id number] LAPROSCOPIC KENDAL LOZOYA DO Jul 19, 2024 12:30
[2024-07-19 13:27] VITALS: BP 118/60; TEMP 36.8
[2024-07-19] MEDS: ceFAZolin 1GM/50ML 50 ML IV SCH (13:54)
--- NOTE | 2024-07-19 14:22 | DVHPN2 ---
Visit Coding OBGYN Date of Service: Jul 19, 2024 Billing Provider: KENDAL LOZOYA DO BEATER MACHINE OPERATOR Common Visit Codes: 84606-[id number] INP/OBS CARE(HIGH) BEATER MACHINE OPERATOR Procedure Codes: 84786-[id number] LAPROSCOPIC KENDAL LOZOYA DO Jul 19, 2024 14:22
--- NOTE | 2024-07-20 07:07 | DVHDSRES ---
Discharge Summary Date of Admission Resident Creating Document: ANJU AYALA RESIDENT Jul 18, 2024 at 17:31 Date of Discharge: Jul 19, 2024 Admitting Diagnosis Abdominal pain Labs/Diagnostic Data: Laboratory Results Test 07/19/24 04:37 07/18/24 20:30 07/18/24 09:49 07/18/24 09:20 White Blood Count 10.9 10^3/uL (4.4-10.8) Red Blood Count 4.37 10^6/uL (4.0-5.20) Hemoglobin 12.6 g/dL (12.2-16.2) Hematocrit 36.7 % (36.0-46.0) Mean Corpuscular Volume 83.9 fL (80.0-100.0) Mean Corpuscular Hemoglobin 28.9 pg (28.0-32.0) Mean Corpuscular Hemoglobin Concent 34.4 g/dL (32.0-36.0) Red Cell Distribution Width 14.0 % (11.8-14.3) Platelet Count 274 10^3/uL (140-450) Mean Platelet Volume 8.0 fL (6.9-10.8) Neutrophils (%) (Auto) 68.4 % (37.0-80.0) Lymphocytes (%) (Auto) 24.1 % (10.0-50.0) Monocytes (%) (Auto) 6.5 % (0.0-12.0) Eosinophils (%) (Auto) 0.7 % (0.0-7.0) Basophils (%) (Auto) 0.3 % (0.0-2.0) Neutrophils # (Auto) 7.4 10 ^3/uL (1.6-8.6) Lymphocytes # (Auto) 2.6 10 ^3/uL (0.4-5.4) Monocytes # (Auto) 0.7 10 ^3/uL (0-1.3) Eosinophils # (Auto) 0.1 10 ^3/uL (0-0.8) Basophils # (Auto) 0 10 ^3/uL (0-0.2) Nucleated Red Blood Cells 0.2 % Sodium Level 143 mmol/L (136-145) Potassium Level 3.8 mmol/L (3.5-5.1) Chloride Level 111 mmol/L (98-107) Carbon Dioxide Level 26 mmol/L (20-31) Anion Gap 6 (5-15) Blood Urea Nitrogen 10 mg/dL (9-23) Creatinine 0.77 mg/dL (0.550-1.02) Glomerular Filtration Rate Calc 107 mL/min (>90) BUN/Creatinine Ratio 13.0 (10.0-20.0) Serum Glucose 96 mg/dL (74-106) Calcium Level 9.0 mg/dL (8.7-10.4) Total Bilirubin 0.4 mg/dL (0.2-1.0) Aspartate Amino Transferase (AST) < 8 U/L (13-40) Alanine Aminotransferase (ALT) 13 U/L (7-40) Alkaline Phosphatase 38 U/L (46-116) Total Protein 5.8 g/dL (5.7-8.2) Albumin 3.7 g/dL (3.2-4.8) Prothrombin Time 10.9 sec (9.3-11.8) Prothrombin Time INR 1.03 (0.9-1.15) Activated Partial Thromboplast Time 26.3 SEC (24.5-34.5) Beta HCG, Quantitative 0.2 mIU/mL (1.5-4.2) Urine Color Colorless (Yellow) Urine Clarity Clear (Clear) Urine pH 6.0 (5.0-9.0) Urine Specific [place] 1.009 (1.001-1.035) Urine Protein Negative (Negative) Urine Ketones Negative (Negative) Urine Blood Negative /uL (Negative) Urine Nitrite Negative (Negative) Urine Bilirubin Negative (Negative) Urine Urobilinogen Normal mg/dL (Negative) Urine Leukocyte Esterase Negative /uL (Negative) Urine RBC 1 /hpf (0 - 4) Urine Microscopic WBC 1 /HPF (0-5) Urine Squamous Epithelial Cells Few /hpf (<5) Urine Bacteria Few /hpf (None Seen) Urine Glucose Normal mg/dL (Normal) Urine Test Negative (Negative) Other Laboratory Tests 07/19/24 04:37 Brief Hx & Hospital Course: HPI: The patient is a 29-year-old 1, para 1, with the past medical history of anxiety and depression who was admitted for abdominal pain. The patient had severe flank pain, did not get relieved with any pain medication initially but some relieve leaning over her hands and knees. Her kidney ultrasound is negative. UA was negative. Her pelvic ultrasound reveals 6 cm ovary on right, 5 com on left, cannot rule out torsion. The patient has no history of endometriosis, dysmenorrhea or dyspareunia. She has regular menses. Hospital course: Patient was admitted to the hospital for a diagnostic laparoscopic intervention, Intraoperative evaluation revealed no evidence of torsion. Bilateral ovaries normal. Right ovary larger than left. No evidence of ischemia and necrosis of any tube or ovary.Patient remain stable after the procedure, no signs of distress. She adolfo safely discharged to home with the recommendation to follow up with pcp within 2 weeks . disposition: home Operations or Procedures [place] [address] Ph: [phone] DIAGNOSTIC IMAGING Diagnostic Imaging Report : [id number] Signed PATIENT: ALY POLANCO ACCT: [id number] UNIT: [id number] : 1995 LOC: OVERFLOW ROOM / BED: [address] [place] [address] / AGE / SEX: 29 / F ADM STATUS: ADM IN SERVICE 170 ORDERING PHYSICIAN: SHERI REYES PROCEDURE(s): KIDUS - KIDNEY REASON: Possible cystitis ORDER NUMBER(s): [id number], ACCESSION NUMBER(s): [id number] BILATERAL RENAL ULTRASOUND CLINICAL HISTORY: Possible cystitis COMPARISON: CT obtained earlier the same day. TECHNIQUE: High-resolution real-time grayscale imaging is performed. FINDINGS: Right kidney: Measures 12.1 cm in length. Mild right hydronephrosis noted. No sizable, shadowing calculi. Normal cortical thickness and echogenicity. Left kidney: Measures 11.2 cm in length. No hydronephrosis. Normal cortical thickness and echogenicity. Bladder: Distended. Prevoid volume 635 mL. Window Treatment Installer reports that the patient does not feel the need to void. Debris is noted within the dependent bladder. IMPRESSION: Mild right hydronephrosis. Distended urinary bladder with layering debris. Cystitis is again included in the differential diagnosis. ATED BY: PERCY HUDSON MD DICTATED DATE/TIME: 07/18/24 988 SIGNED BY: PERCY HUDSON MD SIGNED DATE/TIME: 07/18/24 0957 CC: [place] [address] Ph: [phone] DIAGNOSTIC IMAGING Diagnostic Imaging Report : [id number] Signed PATIENT: ALY POLANCO ACCT: [id number] UNIT: [id number] : 1995 LOC: OVERFLOW ROOM / BED: 1020-ER / A AGE / SEX: 29 / F ADM STATUS: ADM IN SERVICE 1701 ORDERING PHYSICIAN: SHERI REYES PROCEDURE(s): ABPLIV - CT AB PEL WITH IV CON ONLY REASON: Pain ORDER NUMBER(s): [id number], ACCESSION NUMBER(s): [id number] Procedure: CT CT AB PEL WITH IV CON ONLY 07/18/2024 06:24 PM Indication: Pain Comparison Study: None Technique: Axial images were obtained and reformatted in coronal and sagittal planes. All CT scans at this medical facility are performed using dose modulation techniques as appropriate to a performed exam including the following: Automated exposure control was utilized; adjustment of the MA and/or KV according to patient size; and use of iterative reconstruction technique. CT Dose: CTDI volume is 9.68 mGy. Dose-length product is 523.07 mGy*cm FINDINGS: Lower Chest: Unremarkable. Hepatobiliary: Unremarkable. Spleen: Unremarkable. Pancreas: Unremarkable. Adrenal Glands: Unremarkable. tract: The kidneys are normal in size bilaterally . Mild fullness of the bilateral renal pelvises.. Suboptimal evaluation of bladder due to lack of distention. Few subcentimeter foci are seen in the non dependent part of bladder lumen. Is probably related to recent instrumentation. Recommend correlation with GI tract: The stomach is grossly normal in appearance. No evidence of small bowel obstruction. The large bowel is unremarkable. The appendix is normal. Lymphatics: No mesenteric, retroperitoneal or periportal lymphadenopathy. Vasculature: The abdominal aorta is normal in in caliber. Pelvic Organs: Anteverted uterus. Prominent ovaries. A 2 cm crenulated cyst seen in the left ovary most likely corpus luteum ovulation. Bones/soft tissues: No acute abnormality. Other: None. IMPRESSION: 1. Few subcentimeter foci in the bladder lumen likely related to recent instrumentation. Correlate with history of recent Barrera catheter placement. The differential diagnosis includes fistula formation with an adjacent gas containing organ.Mild fullness of the bilateral 2. Renal pelvises may represent hydronephrosis or stasis. No urinary calculi. No CT evidence of pyelonephritis. 3. Prominent ovaries. A 2 cm crenulated cyst is seen in the left ovary which is probably corpus luteum ovulation. Suggest correlation with pelvic sonogram. ATED BY: JOSEFA COYNE MD DICTATED DATE/TIME: 07/18/241903 SIGNED BY: JOSEFA COYNE MD SIGNED DATE/TIME: 07/18/241903 CC: [place] [address] Ph: [phone] DIAGNOSTIC IMAGING Diagnostic Imaging Report : [id number] Signed PATIENT: ALY POLANCO ACCT: [id number] UNIT: [id number] : 1995 LOC: ER ROOM / BED: / AGE / SEX: 29 / F ADM STATUS: REG ER SERVICE 1300 ORDERING PHYSICIAN: ARIANNA COBOS MD PROCEDURE(s): PELUS - PELVIC REASON: ovary torsion ORDER NUMBER(s): [id number], ACCESSION NUMBER(s): [id number] Procedure: US PELVIC Study Date and Requested Time: 07/18/2024 01:24 PM Study Description: US PELVIC History: ovary torsion Comparison: None Technique: Multiple transabdominal and transvaginal high resolution crowley-scale images obtained of the uterus and adnexa with color Doppler for evaluation of adnexal blood flow and vascularity as indicated. Findings: Uterus measures 9.3 x 5.2 x 5.2 cm, with homogeneous echotexture. Endometrium within normal limits, measuring 1.2 cm in thickness with smooth contour. Cervix within normal limits. Right ovary measures 6.4 x 4.1 x 1.9 cm . Left ovary measures 4.9 x 3.1 x 3.9 cm. Normal ovarian color Doppler flow bilaterally. No evidence of cystic or solid ovarian lesions. Small amount of free fluid within the cul-de-sac which may be physiologic. Impression: Bilateral ovaries appear prominent, geyjq-gkzuidp-zctu-left. There is normal ovarian color Doppler flow bilaterally. Ovarian torsion-detorsion can not be excluded. ATED BY: BERNIE BROWNE DO DICTATED DATE/TIME: 07/18/241421 SIGNED BY: BERNIE BROWNE DO SIGNED DATE/TIME: 07/18/241421 CC: [place] [address] Ph: [phone] DIAGNOSTIC IMAGING Diagnostic Imaging Report : [id number] Signed PATIENT: ALY POLANCO ACCT: [id number] UNIT: [id number] : 1995 LOC: ER ROOM / BED: / AGE / SEX: 29 / F ADM STATUS: REG ER SERVICE 1 ORDERING PHYSICIAN: ARIANNA COBOS MD PROCEDURE(s): ABPL - CT AB PEL WO CON-NO ORAL OR IV REASON: stone ORDER NUMBER(s): [id number], ACCESSION NUMBER(s): [id number] CLINICAL INFORMATION: 29 years old, Female; stone. TECHNIQUE: Axial CT images of the abdomen and pelvis were obtained without IV contrast. Coronal and sagittal reformatted images were obtained, reviewed, and stored. Evaluation of the parenchymal organs is limited without IV contrast. Evaluation of the bowel and mesentery is limited without oral contrast. All CT scans at this medical facility are performed using dose modulation techniques as appropriate to a performed exam including the following: Automated exposure control was utilized; adjustment of the MA and/or KV according to patient size; and use of iterative reconstruction technique. CTDIvol = 6.81 mGy DLP = 375.52 mGy-cm COMPARISON: None FINDINGS: Lung bases: Lung bases are clear. Liver: Grossly unremarkable in its noncontrast enhanced appearance. No abnormal density or focal lesion identified. Biliary: No calcified gallstones or biliary ductal dilatation. Spleen: Unremarkable. Pancreas: Grossly unremarkable in its noncontrast enhanced appearance. Adrenal glands: Unremarkable. No mass. Kidneys: No hydronephrosis. No renal or ureteral calculi. Aorta/Vascular: No aneurysm or significant calcification. Retroperitoneum: No mass or lymphadenopathy. Bowel/mesentery: There are a few nonspecific mildly distended gas-filled loops of small mild gaseous distention of colon. No focal transition point to suggest small bowel obstruction. Appendix is visualized and appears unremarkable. Moderate stool in the colon. Pelvic organs: Uterus is anteverted. Suspected small amount of free fluid in the cul-de-sac. Bladder: Small locules of gas are seen in the anterior aspect of the bladder. Abdominal wall: No mass or hernia. Bones: No acute fracture or suspicious intraosseous lesion. IMPRESSION: 1. No hydronephrosis and no renal or ureteral calculi visualized. 2. Small locules of gas in the anterior aspect of the bladder. Gas-forming infection / cystitis not excluded. Correlate with clinical findings. 3. Moderate stool in the colon. There are mildly distended small bowel loops with no focal transition point to suggest small bowel obstruction. 4. Appendix is visualized and appears normal. 5. Small amount of free fluid in the cul-de-sac, likely physiologic. 6. Additional findings as detailed above. ATED BY: LEÓN SALAZAR DO DICTATED DATE/TIME: 07/18/24 1011 SIGNED BY: LEÓN SALAZAR DO SIGNED DATE/TIME: 07/18/24 1011 CC: [place] [address] Ph: [phone] DIAGNOSTIC IMAGING Diagnostic Imaging Report : [id number] Signed PATIENT: ALY POLANCO ACCT: [id number] UNIT: [id number] : 1995 LOC: OVERFLOW ROOM / BED: [address] [place] [address] / AGE / SEX: 29 / F ADM STATUS: ADM IN SERVICE 0000 ORDERING PHYSICIAN: JOSEFA LOZOYA DO PROCEDURE(s): RTLQD - RIGHT LOWER QUAD REASON: RLQ PAIN ORDER NUMBER(s): [id number], ACCESSION NUMBER(s): [id number] INDICATION: RLQ PAIN TECHNIQUE: Graded compression technique along with Multiple real-time sonographic images were obtained for evaluation of the right lower quadrant. FINDINGS: The appendix was not visualized. No free fluid or lymph nodes are seen on this exam. IMPRESSION: 1.Nonvisualization of the appendix, thus cannot exclude appendicitis. ATED BY: MERCY CHAPMAN MD DICTATED DATE/TIME: 07/18/241841 SIGNED BY: MERCY CHAPMAN MD SIGNED DATE/TIME: 07/18/241841 CC: Condition at Discharge: Good Final Diagnosis/Problems List Mild right hydronephrosis. Distended urinary bladder with layering debris 2 cm crenulated cyst is seen in the left ovary which is probably corpus luteum ovulation. Acute abdominal pain, resolved. Discharge Disposition: Home SNF Discharge Will this Physician continue t: No Discharge Instruct/Medications Diet: Regular Activity: Light activity Follow Up/Referral: next wednesday Medications: elayne herr Discharge Statement: "Patient was advised to return to the ER or call 911 if any headaches, dizziness, shortness of breath, chest pain, abdominal pain, bleeding, fevers, or worsening of medical condition. Patient was counseled about treatment plan, medications, possible side effects, patientverbalized understanding. All questions were answered to the best of my ability. This discharge took greater then 30 minutes in planning, reviewing documentation, counseling the patient, and discussing with other team members." ASSESSMENT ASSESSMENT Assessment s/p laparoscopy Date of Service: Jul 19, 2024 Billing Provider: JOSÉ MIGUEL SMITH MD Common Visit Codes: 30570-QYW/OBS DISCH DAY >30min ANJU AYALA RESIDENT Jul 20, 2024 07:07 JOSÉ MIGUEL SMITH MD Jul 20, 2024 08:51
== END 2024-07-19 13:43 | disposition home or self-care (01) | DRG 742 ==
LOC: EEVIPCON 08:58 → ER 08:58 → OVERFLOW 17:31 → CENTRAL 21:56
PROVIDERS: ADMIT Student in an Organized Health Care Education/Training Program; ATTEND Student in an Organized Health Care Education/Training Program
PROC: 0UJ34ZZ Inspection of Ovary, Percutaneous Endoscopic Approach (ICD-10-PCS; principal; 2024-07-19 05:23)
DX: N83.292 Other ovarian cyst, left side (principal); N13.30 Unspecified hydronephrosis; F32.A Depression, unspecified; F17.210 Nicotine dependence, cigarettes, uncomplicated; F41.9 Anxiety disorder, unspecified; K52.9 Noninfective gastroenteritis and colitis, unspecified; N32.89 Other specified disorders of bladder; Z79.899 Other long term (current) drug therapy
CPT/HCPCS: 36415; 74176; 74177; 76705; 76775; 76830; 76856; 80048; 80053; 81001; 81025; 84702; 85025; 85610; 85730; 86850; 86900; 86901; 87086; 96361; 96365; 96375; G0378; J0131; J0330; J1100; J1885; J2405; J2704; J3490

== ENCOUNTER → 2024-08-30 | Outpatient (CLI) | payer BC ==
[~2024-08-30] MED LIST: CIPR-173 PO; DOCU-94 PO; HYDR-4072 PO; IBUP-1456 PO; ZOFR4T PO; [UNRECOGNIZED DRUG - CODE] PO
[2024-08-30 10:23] LABS: Basophils # (auto) 0.1 10 ^3/uL (0-0.2); Basophils % (auto) 1.3 % (0.0-2.0); Eosinophils # (auto) 0.1 10 ^3/uL (0-0.8); Hematocrit 44.1 % (36.0-46.0); Lymphocytes # (auto) 1.7 10 ^3/uL (0.4-5.4); Lymphocytes % (auto) 20.5 % (10.0-50.0); Mean Corpuscular Hemoglobin 28.5 pg (28.0-32.0); Mean Corpuscular Hgb Conc. 34.1 g/dL (32.0-36.0); Mean Corpuscular Volume 83.6 fL (80.0-100.0); Monocytes # (auto) 0.5 10 ^3/uL (0-1.3); Monocytes % (auto) 5.6 % (0.0-12.0); Neutrophils # (auto) 6.1 10 ^3/uL (1.6-8.6); Neutrophils % (auto) 71.6 % (37.0-80.0); Platelet Count (auto) 297 10^3/uL (140-450); Red Blood Cells 5.27 10^6/uL (4.0-5.20); Red Cell Distribution Width 13.4 % (11.8-14.3); White Blood Cell 8.5 10^3/uL (4.4-10.8)
[2024-08-30 11:08] LABS: Amphetamine Screen, Urine Neg (NEGATIVE); Barbiturate Scree,Urine Neg (NEGATIVE); Benzodiazephine Screen, Urine Neg (NEGATIVE); Cannabinoid Screen, Urine Neg (NEGATIVE); Cocaine Screen, Urine Neg (NEGATIVE); Opiate Scree,Urine Neg (NEGATIVE); Phencyclidine Screen, Urine Neg (NEGATIVE)
[2024-09-01 00:07] LABS: Chlamydia Trachomatis, NAA Negative (Negative); Neisseria gonorrhoeae, NAA Negative (Negative)
== END | disposition home or self-care (01) ==
LOC: LAB 09:49
PROVIDERS: ATTEND Obstetrics & Gynecology
DX: Z34.80 Encounter for supervision of other normal pregnancy, unspecified trimester (principal); Z72.51 High risk heterosexual behavior; Z3A.00 Weeks of gestation of pregnancy not specified
CPT/HCPCS: 36415; 80307; 83036; 84144; 84702; 85025; 86703; 86762; 86780; 86850; 86900; 86901; 87086; 87340

== ENCOUNTER 2025-02-13 07:45 | Outpatient (CLI) | payer BC ==
[2025-02-13 08:31] LABS: Hematocrit 34.9 % (36.0-46.0); Hemoglobin 11.7 g/dL (12.2-16.2); Mean Corpuscular Hemoglobin 28.3 pg (28.0-32.0); Mean Corpuscular Volume 84.5 fL (80.0-100.0); Nucleated Red Blood Cells % 0.0 %
== END 2025-02-13 17:00 | disposition home or self-care (01) ==
LOC: LAB 07:45
DX: Z34.80 Encounter for supervision of other normal pregnancy, unspecified trimester
CPT/HCPCS: 36415; 82951; 83036; 85025; 86850; 86900; 86901

== ENCOUNTER 2025-04-04 13:12 | Outpatient (CLI) | payer BC ==
[2025-04-04 13:30] LABS: Hematocrit 36.8 % (36.0-46.0); Hemoglobin 12.6 g/dL (12.2-16.2); Mean Corpuscular Hemoglobin 29.0 pg (28.0-32.0); Mean Corpuscular Volume 84.8 fL (80.0-100.0); Nucleated Red Blood Cells % 0.1 %
[2025-04-06 05:09] LABS: Chlamydia Trachomatis, NAA Negative (Negative); Neisseria gonorrhoeae, NAA Negative (Negative)
== END 2025-04-04 17:00 | disposition home or self-care (01) ==
LOC: LAB 13:12
DX: Z34.80 Encounter for supervision of other normal pregnancy, unspecified trimester (principal); Z3A.00 Weeks of gestation of pregnancy not specified
CPT/HCPCS: 36415; 85025; 86780

== ENCOUNTER 2025-04-19 12:27 | Observation (INO) | payer BC ==
--- NOTE | 2025-04-19 13:38 | DVH ---
BIOPHYSICAL PROFILE HISTORY: double nucal Comparison Study: None TECHNIQUE: Multiple real-time grayscale sonographic images through the gravid uterus of the fetus with duplex doppler color flow and M-mode spectral analysis FINDINGS: BIOPHYSICAL PROFILE: breathing score: 2 movement score: 2 tone score: 2 Quantitative LUIS M score: 2 (LUIS M: 17.1 cm.) Total score: 8 Single live fetus in cephalic presentation. heart rate 132 beats per minute. Grade 2 placenta without previa or abruption Single nuchal cord visualized. IMPRESSION: 1. Biophysical profile score: 8 2. Single nuchal cord
--- NOTE | 2025-04-20 07:24 | DVHDS2 ---
Physician Discharge Progress N Final Diagnosis: macrosomia 38wks Operations or Procedures: Operations or Procedures nst reactive reviwed,sono Condition on Discharge: Good Disposition: Home Discharge Instructions: Diet: Regular Activity: No Restrictions, As Tolerated Medications: na Follow Up Care: Specialist: 3d Discharge Statement: "Patient was advised to return to the ER or call 911 if any headaches, dizziness, shortness of breath, chest pain, abdominal pain, bleeding, fevers, or worsening of medical condition. Patient was counseled about treatment plan, medications, possible side effects, patientverbalized understanding. All questions were answered to the best of my ability. This discharge took greater then 30 minutes in planning, reviewing doc umentation, counseling the patient, and discussing with other team members." Visit Coding OBGYN Date of Service: Apr 19, 2025 Billing Provider: KENDAL LOZOYA DO TRAVEL REGISTERED NURSE NICU Common Visit Codes: 93590-HDQNVVR INP/OBS CARE (HIGH) TRAVEL REGISTERED NURSE NICU Procedure Codes: 41493-13- NON-STRESS TEST KENDAL LOZOYA DO Apr 20, 2025 07:24
== END 2025-04-19 14:16 | disposition home or self-care (01) ==
LOC: LDRP 12:27
PROVIDERS: ADMIT Obstetrics & Gynecology; ATTEND Obstetrics & Gynecology
DX: O36.63X0 Maternal care for excessive fetal growth, third trimester, not applicable or unspecified (principal); Z3A.38 38 weeks gestation of pregnancy; Z79.899 Other long term (current) drug therapy
CPT/HCPCS: 76818; 81002; 94760; A4649; G0378; 59025; 76819

== ENCOUNTER 2025-04-23 12:01 | Observation (INO) | payer BC ==
--- NOTE | 2025-04-23 12:59 | DVH ---
BIOPHYSICAL PROFILE HISTORY: nuchal TECHNIQUE: Multiple real-time grayscale sonographic images through the gravid uterus of the fetus with duplex Doppler color flow. FINDINGS: BIOPHYSICAL PROFILE: breathing score: 2 movement score: 2 tone score: 2 Quantitative LUIS M score: 2 Total score: 8 out of 8 Nuchal cord is again noted. heart rate 129 beats per minute. The placenta is anteriorly positioned. lie cephalic. LUIS M 15.6 cm. IMPRESSION: Nuchal cord again noted. Biophysical profile score: 8 out of 8
--- NOTE | 2025-04-23 13:21 | DVHDS2 ---
Physician Discharge Progress N Final Diagnosis: testing for nuchal cord Operations or Procedures: Operations or Procedures 30yo IUP@39+wks VSS NST reactive per RN SVE: 0/50/-1 (external os 4cm), soft, posterior. (per pt request) FKC/PreE/labor precautions reviewed Other Interventions Other Interventions [place] [address] Ph: [phone] DIAGNOSTIC IMAGING Diagnostic Imaging Report : [id number] Signed PATIENT: ALY POLANCO ACCT: [id number] UNIT: [id number] : 1995 LOC: [facility] ROOM / BED: TRIAGE1 / A AGE / SEX: 30 / F ADM STATUS: ADM IN SERVICE 1207 ORDERING PHYSICIAN: NICOL ROCHA CNM PROCEDURE(s): BPP - BIOPHYSICAL PROFILE REASON: nuchal ORDER NUMBER(s): [id number], ACCESSION NUMBER(s): [id number] BIOPHYSICAL PROFILE HISTORY: nuchal TECHNIQUE: Multiple real-time grayscale sonographic images through the gravid uterus of the fetus with duplex Doppler color flow. FINDINGS: BIOPHYSICAL PROFILE: breathing score: 2 movement score: 2 tone score: 2 Quantitative LUIS M score: 2 Total score: 8 out of 8 Nuchal cord is again noted. heart rate 129 beats per minute. The placenta is anteriorly positioned. lie cephalic. LUIS M 15.6 cm. IMPRESSION: Nuchal cord again noted. Biophysical profile score: 8 out of 8 ATED BY: DIMA MONTES DE OCA MD DICTATED DATE/TIME: 04/23/25 1257 SIGNED BY: DIMA MONTES DE OCA MD SIGNED DATE/TIME: 04/23/25 1257 CC: Condition on Discharge: Stable Disposition: Home Discharge Instructions: Diet: Regular Activity: No Restrictions, As Tolerated Medications: see med list Follow Up Care: Specialist: f/u twice weekly Discharge Statement: "Patient was advised to return to the ER or call 911 if any headaches, dizziness, shortness of breath, chest pain, abdominal pain, bleeding, fevers, or worsening of medical condition. Patient was counseled about treatment plan, medications, possible side effects, patientverbalized understanding. All questions were answered to the best of my ability. This discharge took greater then 30 minutes in planning, reviewing documentation, counseling the patient, and discussing with other team members." Visit Coding OBGYN Date of Service: Apr 23, 2025 Billing Provider: NICOL ROCHA CNM CELL ASSEMBLY PINNER Common Visit Codes: 35064-GCPBJEJ OBS CARE (HIGH) CELL ASSEMBLY PINNER Procedure Codes: 70245-69- NON-STRESS TEST NICOL ROCHA CNM Apr 23, 2025 13:21
[2025-04-23] MEDS ORDERED: PREN-129 OR (13:39)
== END 2025-04-23 13:44 | disposition home or self-care (01) ==
LOC: LDRP 12:01
PROVIDERS: ADMIT Obstetrics & Gynecology; ATTEND Obstetrics & Gynecology
DX: O69.81X0 Labor and delivery complicated by cord around neck, without compression, not applicable or unspecified (principal); Z3A.39 39 weeks gestation of pregnancy; Z98.890 Other specified postprocedural states
CPT/HCPCS: 76818; 81002; 94760; A4649; G0378; 59025; 76819

== ENCOUNTER 2025-04-23 22:00 | Inpatient (IN) | payer BC ==
[~2025-04-23] VITALS: Ht 170.2 cm; Wt 94.8 kg
[~2025-04-23 22:00] MED LIST changes: +PREN-129 OR
[2025-04-23] MEDS ORDERED: BUTORPHANOL TARTRATE 2 MG/1 ML VIAL IV PRN ×2 (22:30)
--- NOTE | 2025-04-23 22:38 | DVHHP2 ---
OB CC & HPI Date Date of Admission: Apr 23, 2025 Patient Identification: : 3 Para: 1 EDC: Apr 30, 2025 EGA: 39 weeks Chief Complaints: Reason for admission: active labor Admission Nurse Assessment Rev: Yes History of Present Complaints 30yo IUP@39wks presents to OB triage and pt reports leaking of fluid that started this evening. Describes clear gushing of fluid and very mild contractions.. Wants an epidural. Denies VB/HENAO/vision changes/RUQ pain. Endorses +FM. PNC: Routine PNC at [facility] OB, adequate visits, uncomplicated. Hx of nuchal cord this . GTT wnl, GBS negative. Dating based on 6wk sono OB hx: x1, uncomplicated in 2019 Past Medical History Cardiac: No pertinent Hx Pulmonary: No pertinent Hx Central Nervous System: No pertinent Hx GI: No pertinent Hx Hemotology/Oncology: No pertinent Hx Hepatobiliary: No pertinent Hx Psychiatric: No pertinent Hx Musculoskeletal: No pertinent Hx Rheumotologic: No pertinent Hx Infectious Disease: No peritnent Hx ENT: No pertinent Hx Renal/: No pertinent Hx Endocrine: No pertinent Hx Dermatology: No pertinent Hx Past Surgical History: No pertinent Hx OB History OB History Care: Good Care Ultrasounds: Normal mid trimester US Obstetrical Complications: None Medical Complications: None Allergies: Coded Allergies: NO KNOWN ALLERGIES (Unverified , 10/18/13) Home Meds Active Scripts Ciprofloxacin Hcl (Cipro) 500 Mg Tab, 1 TAB PO BID for 7 Days, #14 TAB Prov:DEVORAKENDAL DO 07/19/24 Ondansetron Odt 4MG Tab (ZOFRAN PO) 4 Mg Tb, 4 MG PO Q4HPRN PRN for 7 Days, #35 TAB ODT TAB-DISSOLVE IN MOUTH, THEN SWALLOW Prov:DEVORAKENDAL DO 07/19/24 Ibuprofen (Ibuprofen) 800 Mg Tab, 800 MG PO TID PRN for 4 Days, #12 TAB Prov:DEVORAKENDAL DO 07/19/24 Hydrocodone-Acetaminophen (Hydrocodone/Acetaminophen 10-325 mg) 1 Tab Tab, 1 TAB PO Q6HPRN PRN for 4 Days, #16 TAB Prov:KENDAL MERCADO DO 07/19/24 Docusate Sodium (Colace) 100 Mg Cap, 1 CAP PO BID, #60 CAP 2 Refills Prov:KENDAL MERCADO DO 07/19/24 Reported Medications Vit W/ Ferrous Fumara () Tab, 1 OR, TAB 04/23/25 Amphetamine/Dextroamphetamine (Amphetamine/Dextroampheta) 7.5 Mg Tab, 15 MG PO BID 07/18/24 Home Meds PNV Family & Social History Family/Social History Past Family/Social History: Denies Blood Type: O+ Rubella: unknown (Equivocal) RPR/VDRL: Negative GBS Status: Negative HBsAG: Negative Review of Systems Constitutional: No symptom reported Ears, Nose, & Throat: No symptom reported Eyes: No symptom reported Pulmonary/Respiratory: No symptom reported Cardiovascular: No symptom reported Gastrointestinal: No symptom reported Genitourinary: No symptom reported Musculoskeletal: No symptom reported Skin: No symptom reported Psychiatric: No symptom reported Endocrine: No symptom reported Hemotologic/Lymphatic: No symptom reported OB Admission Exam Physical Exam Vitals: VSS See cpn EFW in office 9lbs HEENT: TMs Normal, Fontanelles Normal, Nasal Mucosa Normal, Eyes non-injected, Oropharynx Normal, PERRLA, Moist Membranes, EOMI Heart: Rhythm Normal Lungs: Clear Abdomen: Gravid Extremities: Normal Reflexes: Normal Cervical Dilatation: 5cm Effacement: Other (70) Station: -1 Membranes: Ruptured Amniotic Fluid: Clear Heart Rate: 140's Accelerations: Accelerations Present Decelerations: No Decelerations Short Term Variability: Present Assisted Variability: Average (6-25) Contractions on Admission: >10 Minutes Apart Intensity: Mild OB Plan Plan Admitting Diagnosis: srom Plan: Expectant Management Induction Methd: Pitocin protocol Other Plan: A: 30yo IUP@39wks SROM Clear fluid Category I EFM GBS negative P: Admit to L&D Informed consent obtained Discussed starting IV pitocin for augmentation with pt. Pt agrees with POC, wants epidural first. monitoring per order Routine labs ordered Pain mgmt PRN Frequent position changes in and out of bed encouraged Limit SVE unless necessary Intrauterine resuscitation PRN Anticipate CNM will consult with Dr. Mercado PRN Visit Coding OBGYN Date of Service: Apr 23, 2025 Billing Provider: NICOL ROCHA CNM SUPPLIER RELATIONSHIP DIRECTOR Common Visit Codes: 27011-GBECMUN OBS CARE (MOD) SUPPLIER RELATIONSHIP DIRECTOR Procedure Codes: 64647-00- NON-STRESS TEST ART RACHEL STUDENTMDW Apr 23, 2025 22:38
[2025-04-23 22:55] LABS: Urine Protein, UAD Negative (Negative)
[2025-04-23] MEDS ORDERED: LACT. RINGERS/OXYTOCIN 20UNITS 1,000 ML IV SCH (23:00)
[2025-04-23] MEDS ORDERED: TERBUTALINE SULFATE 1 MG/ML 1ML VIAL SC PRN (23:00)
[2025-04-23 23:10] LABS: Amphetamine Screen, Urine Neg (NEGATIVE); Barbiturate Scree,Urine Neg (NEGATIVE); Benzodiazephine Screen, Urine Neg (NEGATIVE); Cannabinoid Screen, Urine Neg (NEGATIVE); Cocaine Screen, Urine Neg (NEGATIVE); Opiate Scree,Urine Neg (NEGATIVE); Phencyclidine Screen, Urine Neg (NEGATIVE)
[2025-04-23 23:10] LABS: Alanine Aminotransferase 13 U/L (7-40); Albumin 4.1 g/dL (3.2-4.8); Anion Gap 10 (5-15); BUN/Creatinine Ratio 10.1 (10.0-20.0); Calcium 9.9 mg/dL (8.7-10.4); Carbon Dioxide 24 mmol/L (20-31); Chloride 104 mmol/L (98-107); Glucose 85 mg/dL (74-106); Potassium 3.9 mmol/L (3.5-5.1); Sodium 138 mmol/L (136-145); Total Protein 7.3 g/dL (5.7-8.2)
[2025-04-23 23:11] LABS: Alkaline Phosphatase 163 U/L (46-116); Bilirubin, Total 0.3 mg/dL (0.2-1.0); Blood Urea Nitrogen 8 mg/dL (9-23)
[2025-04-23] MEDS ORDERED: ONDANSETRON HCL 4 MG/2 ML VIAL IV PRN (23:15)
[2025-04-23 23:31] LABS: INR 0.89 (0.9-1.15); Partial Thromboplastin Time 24.7 SEC (24.5-34.5); Prothrombin Time 9.5 sec (9.3-11.8)
[2025-04-23 23:33] LABS: Hematocrit 37.3 % (36.0-46.0); Hemoglobin 12.9 g/dL (12.2-16.2); Mean Corpuscular Hemoglobin 28.8 pg (28.0-32.0); Mean Corpuscular Volume 83.6 fL (80.0-100.0); Nucleated Red Blood Cells % 0.0 %
[2025-04-23] MEDS: LACTATED RINGER'S 1,000 ML IV SCH (23:37)
[2025-04-24] MEDS: DERMOPLAST 60ML BOTTLE TOP PRN (00:05)
[2025-04-24] MEDS: WITCH HAZEL-GLYCERIN PAD TOP PRN (00:05)
[2025-04-24] MEDS: PHISODERM TOP SOLN 240ML BTL TOP PRN (00:05)
--- NOTE | 2025-04-24 08:02 | DVHPN2 ---
Chief Complaints Patient reports: No new complaints Nursing reports: No new complaints Objective Medications Current Medications Medications (Trade) Dose Ordered Sig/Kishore Route PRN Reason Start Time Stop Time Status Last Admin Benzocaine (Dermoplast) 1 applic PRN PRN TOP PERINEAL AREA DISCOMFORT 04/23/25 22:30 04/24/25 00:05 Butorphanol Tartrate (Stadol Injection) 1 mg Q4HPRN PRN IV MODERATE PAIN (4-6 PAIN SCALE) 04/23/25 22:30 Butorphanol Tartrate (Stadol Injection) 2 mg Q4HPRN PRN IV SEVERE PAIN (7-10 PAIN SCALE) 04/23/25 22:30 Lactated Ringer's 1,000 ml @ 125 mls/hr Q8H IV 04/23/25 22:30 04/24/25 02:17 Lidocaine HCl (Xylocaine) 20 ml ONCE PRN IJ PERINEAL AREA DISCOMFORT 04/23/25 22:30 Ondansetron HCl (Zofran) 4 mg Q4HPRN PRN IV NAUSEA / VOMITING 04/23/25 23:15 Oxytocin 1,000 ml @ 6 ml/hr Q24H IV 04/23/25 23:00 Cancel Oxytocin 1,000 ml @ 6 ml/hr Q24H IV 04/23/25 23:15 Sodium Lauryl Sulfate (Phisoderm) 240 ml PRN PRN TOP PERINEAL AREA DISCOMFORT 04/23/25 22:30 04/24/25 00:05 Terbutaline Sulfate (Brethine Inj) 0.25 mg ONCE PRN SC Uterine tachysystole 04/23/25 23:00 Leydi Mcdonald (Melany) 1 pad PRN PRN TOP PERINEAL AREA DISCOMFORT 04/23/25 22:30 04/24/25 00:05 Others ve per nurse 5cm/80/-2 Studies Laboratory Tests 04/23/25 22:40 Test 04/23/25 22:40 Range/Units Serum Glucose 85 74-106 mg/dL Ass/Plan Assessment term preg with srom Plan pt desires to go all natural,baby"s wt is 8-14 and i gave the pt option of pcs to avoid sholulder dystocia but pt is adement about delivering vaginally.risks and complication of erbs palsy,all other nerve related injury,risk of demise,short term as well as penitentiary morbidity and mortality explained to pt .pt fully understands all question answered pt wishes to proceed with vag delivery Visit Coding OBGYN Date of Service: Apr 24, 2025 Billing Provider: KENDAL LOZOYA DO AMF MECHANIC Common Visit Codes: [id number] OBS CARE (HIGH) AMF MECHANIC Procedure Codes: 05987-59- NON-STRESS TEST KENDAL LOZOYA DO Apr 24, 2025 08:02
[2025-04-24] MEDS: NALOXONE HCL 0.4 MG/ML VIAL IV ONE (12:45)
[2025-04-24] MEDS: LACTATED RINGER'S 1,000 ML IV ONE (13:09)
[2025-04-24] MEDS: fentaNYL CITRATE 100 MCG/2 ML VL IV ONE (14:04)
[2025-04-24] MEDS: ROPIVACAINE HCL 100 ML ONE (14:05)
[2025-04-24] MEDS: ceFAZolin 1GM/50ML 50 ML IV SCH (14:33)
--- NOTE | 2025-04-24 14:33 | EPIDURAL ---
Anesthesia Procedural Note - Epidural Informed consent obtained?: Yes Medication Administered: Fentanyl 100 mcg Sterile prept drape: Yes Spinal level of insertion: L4-L5 Test dose of lidocaine & Epine: Negative Infusion started: Yes Start time: 13:30 End time: 14:00 Procedure description Procedure description: Called for labor analgesia. Patient examined, chart reviewed and history taken. Patient is here with SROM. Patient requesting labor epidural prior to initiation of pitocin. Patient reports that the anesthesiologist reported difficulty placing her epidural during her first delivery. Informed consent for CSE obtained. Sitting position, sterile prep and drape.Time out done. L4-5 space infiltrated with 1% lido. Epidural needle placed with MARLENE at 5cm. 25G spinal needle +clear CSF. 15 mcg fentanyl given IT. Epidural catheter secured at 11cm. Aspiration and test dose (3cc 1.5% lido with epi) negative. 85mcg fentanyl given via epidural. Patient reports good pain relief. 0.2% ropivacaine infusion started. Will follow as needed. FABIAN WINCHESTER MD Apr 24, 2025 14:33
--- NOTE | 2025-04-24 15:05 | DVHPN2 ---
Chief Complaints Patient reports: No new complaints Nursing reports: No new complaints Objective Vitals Vital Signs Date Time Temp Pulse Resp B/P (MAP) Pulse Ox O2 Delivery O2 Flow Rate FiO2 04/24/25 14:04 123/83 Medications Current Medications Medications (Trade) Dose Ordered Sig/Kishore Route PRN Reason Start Time Stop Time Status Last Admin Benzocaine (Dermoplast) 1 applic PRN PRN TOP PERINEAL AREA DISCOMFORT 04/23/25 22:30 04/24/25 00:05 Butorphanol Tartrate (Stadol Injection) 1 mg Q4HPRN PRN IV MODERATE PAIN (4-6 PAIN SCALE) 04/23/25 22:30 Butorphanol Tartrate (Stadol Injection) 2 mg Q4HPRN PRN IV SEVERE PAIN (7-10 PAIN SCALE) 04/23/25 22:30 Cefazolin Sodium 50 ml @ 100 mls/hr Q8H IV 04/24/25 14:15 04/24/25 14:33 Lactated Ringer's 1,000 ml @ 125 mls/hr Q8H IV 04/23/25 22:30 04/24/25 14:07 Lidocaine HCl (Xylocaine) 20 ml ONCE PRN IJ PERINEAL AREA DISCOMFORT 04/23/25 22:30 Ondansetron HCl (Zofran) 4 mg Q4HPRN PRN IV NAUSEA / VOMITING 04/23/25 23:15 Oxytocin 1,000 ml @ 6 ml/hr Q24H IV 04/23/25 23:00 Cancel Oxytocin 1,000 ml @ 6 ml/hr Q24H IV 04/23/25 23:15 Sodium Lauryl Sulfate (Phisoderm) 240 ml PRN PRN TOP PERINEAL AREA DISCOMFORT 04/23/25 22:30 04/24/25 00:05 Terbutaline Sulfate (Brethine Inj) 0.25 mg ONCE PRN SC Uterine tachysystole 04/23/25 23:00 Leydi Mcdonald (Stewcks) 1 pad PRN PRN TOP PERINEAL AREA DISCOMFORT 04/23/25 22:30 04/24/25 00:05 Others ve-4cm/70/-1 per oswald snider Studies Laboratory Tests 04/23/25 22:40 Test 04/23/25 22:40 Range/Units Serum Glucose 85 74-106 mg/dL Ass/Plan Assessment term preg with srom Plan start pitocin abx started Visit Coding OBGYN Date of Service: Apr 24, 2025 Billing Provider: KENDAL LOZOYA DO SIDE STAPLER Common Visit Codes: [id number] OBS CARE (HIGH) SIDE STAPLER Procedure Codes: 62399-01- NON-STRESS TEST KENDAL LOZOYA DO Apr 24, 2025 15:05
[2025-04-24] MEDS: LACT. RINGERS/OXYTOCIN 20UNITS 1,000 ML IV SCH (15:06)
[2025-04-24] MEDS ORDERED: fentaNYL CITRATE 100 MCG/2 ML VL ONE (17:06)
[2025-04-24] MEDS ORDERED: LIDOCAINE 2% (LOCAL ANESTH.) PF 5ml SDV ONE (17:06)
[2025-04-24] MEDS: LACT. RINGERS/OXYTOCIN 20UNITS 500 ML IV ONE ×2 (17:54→18:15)
[2025-04-24] MEDS: LIDOCAINE 2%HCL (LOCAL ANESTH.) INJ 20ML MDV IJ PRN (18:12)
[2025-04-24] MEDS: METHYLERGONOVINE MALEATE 0.2 MG/ML AMP IM ONE ×2 (18:13→18:28)
[2025-04-24] MEDS ORDERED: TRANEXAMIC ACID 1,000 mg/10ml INJ VIAL IV ONE (20:55)
--- NOTE | 2025-04-24 21:13 | LDN2 ---
Labor and Delivery Note Date 04/24/25 Age 30 3 Para 2 now AB 1 EDC 04/30/2025 EGA 39.1 weeks Diagnosis after SROM and pitocin augmentation Vaginal Delivery: VTX Vacuum Assisted: No Placenta: Spontaneous Sex: Male Weight 9lbs 6oz Apgars 8/9 Nuchal Cord Transected: No Amniotic Fluid: Clear Anesthesia Epidural Episiotomy: No Extension: No Repaired with 3-0 Vicryl EBL 350mls QBL Labs Laboratory Tests 08/30/24 10:09: Hepatitis B Surface Antigen Negative, HIV (1&2) Antibody Negative, Rubella Antibody Equivocal Blood Bank 04/23/25 22:40: Blood Type O POSITIVE Complications none Conditions Stable Projector Operator Juliano Comments/Significant Med Ronaldo At 1739 this 30yo now G3 now P2 delivered a viable male infant by w/ APGARS 8/9. KAYLEE with tight Nuchal x2 with cord reduced after delivery. placed on mothers chest. Cord clamped and cut after pulsation ceased. TXA 1g IVPB started prophylactically due to hx of pp hemorrhage before delivery of placenta. Pitocin IV bolus started. Intact 3-vessel cord placenta delivered spontaneously, Duran. Patient had epidural and local anesthesia. Boggy lower uterine segment noted, IM Methergine given. Cervix/Vagina inspected and first degree perineal laceration present which was repaired with 3-[address]-1 suture, and Left labial laceration was also repaired with 3-0 vicryl SH. Fundus firm at U, midline, light lochia. Lower uterine segment now firm. VSS. QBL 350ml. Patient to care and baby to couplet care. Visit Coding OBGYN Date of Service: Apr 24, 2025 Billing Provider: NICOL ROCHA CNM PROJECT SCIENTIST Common Visit Codes: PROCEDURE ONLY PROJECT SCIENTIST Procedure Codes: [id number] DEL INCLUDING ART RACHEL STUDENTMDW Apr 24, 2025 21:13
[2025-04-24] MEDS ORDERED: DOCUSATE SOD 100 MG CAP PO SCH (22:00)
[2025-04-24 23:02] VITALS: BP 110/55; PULSE 83; RESP 17; TEMP 98.1; O2SAT 96
--- NOTE | 2025-04-25 00:30 | DVHPN2 ---
Progress Note Date Seen: Apr 25, 2025 Subjective S: bleeding is less, eating food without issues, denies lightheaded/dizziness, pain well controlled with oral medications, no concerns with urinating, passing flatus, no BM yet, ambulating well, well vital signs Vital Sign Date Time Temp Pulse Resp B/P (MAP) Pulse Ox O2 Delivery O2 Flow Rate FiO2 04/24/25 23:02 98.1 83 17 110/55 (73) 96 98.1 04/24/25 20:45 Room Air Total Intake and Output 04/24/25 04/24/25 04/25/25 15:00 23:00 07:00 Intake Total 1000 ml Output Total 350 ml Balance 1000 ml -350 ml medications Current Medications Medications Dose Ordered Sig/Kishore Route Start Time Stop Time Status Last Admin Dose Admin Leydi Mcdonald 1 pad PRN PRN TOP 04/23/25 22:30 04/24/25 00:05 1 PAD Sodium Lauryl Sulfate 240 ml PRN PRN TOP 04/23/25 22:30 04/24/25 00:05 240 ML Benzocaine 1 applic PRN PRN TOP 04/23/25 22:30 04/24/25 00:05 1 APPLIC Butorphanol Tartrate 1 mg Q4HPRN PRN IV 04/23/25 22:30 Cancel Butorphanol Tartrate 2 mg Q4HPRN PRN IV 04/23/25 22:30 Cancel Lidocaine HCl 20 ml ONCE PRN IJ 04/23/25 22:30 Cancel 04/24/25 18:12 20 ML Oxytocin 1,000 ml @ 6 ml/hr Q24H IV 04/23/25 23:00 Cancel Terbutaline Sulfate 0.25 mg ONCE PRN SC 04/23/25 23:00 Cancel Ondansetron HCl 4 mg Q4HPRN PRN IV 04/23/25 23:15 Cancel Ibuprofen 600 mg Q6HP PRN PO 04/24/25 18:00 Acetaminophen 650 mg Q6HPRN PRN PO 04/24/25 18:00 Prenat Multivit/ [place]/Iron/Folic Ac 1 DAILY PO 04/25/25 10:00 Docusate Sodium 200 mg HS PO 04/24/25 22:00 laboratory and microbiology Laboratory Tests 04/23/25 22:40 Test 04/23/25 22:40 Range/Units Serum Glucose 85 74-106 mg/dL Objective O: VSS Chest: heart sounds normal and lung sounds clear bilaterally Abd: soft, non-tender, fundus at U/firm/midline, active bowel sounds, no rebound or guarding Perineum: sutures intact, edges well approximated, mild edema and no erythema noted Ext: Non-tender, No edema, 2+ BLE DTRs Lochia: minimal See lab results Problems(with codes): (1) (normal spontaneous vaginal delivery) (2) Obstetric labial laceration, delivered, current hospitalization (3) First degree perineal laceration during delivery Assessment/Plan A: 30yo now PPD#1 s/p Rh+ Rubella Immune P: D/C home tonight Rx sent to pharmacy precautions and preeclampsia warning signs reviewed F/U with [facility] office in 2 weeks Plan discussed with: Patient, Spouse Visit Coding OBGYN Date of Service: Apr 25, 2025 Billing Provider: NICOL ROCHA CNM PIPE CLEANING MACHINE OPERATOR Common Visit Codes: [id number] INP/OBS CARE(MOD) NICOL ROCHA CNM Apr 25, 2025 00:30
--- NOTE | 2025-04-25 00:31 | DVHDS2 ---
Obstetrics Discharge Summary Obstetrics Discharge Summary Date of Admission: Apr 23, 2025 Date of Discharge: Apr 25, 2025 Reason For Admission: Others (SROM) Procedures: NST Intrapartum Procedures: Spontaneous vaginal deliv Procedures: Hct/date: (04/25/25), Hgb/date: (04/25/25) Operative Complicat: Laceration (first degree perineal and left labial) Discharge Diagnosis: Term -Delivered Discharge Information: Activity (as tolerated, no heavy lifting and nothing in the vagina for 6 weeks), Diet (Routine), Medications (Rx sent), Instructions (Routine), Discharge to (Home), Accompanied by (partner), Discarge date (04/25/25) Visit Coding OBGYN Date of Service: Apr 25, 2025 Billing Provider: NICOL ROCHA CNM SPECIAL DAY CLASS TEACHER Common Visit Codes: 91081-BOB/OBS DISCH DAY <30MIN NICOL ROCHA CNM Apr 25, 2025 00:31
[2025-04-25] MEDS ORDERED: IBUP-1456 PO (00:34)
[2025-04-25] MEDS ORDERED: PRENCAP11 PO (00:34)
[2025-04-25] MEDS ORDERED: DOCU-94 PO (00:34)
[2025-04-25 03:00] VITALS: BP 113/60; PULSE 77; RESP 16; TEMP 98.2; O2SAT 96
[2025-04-25] MEDS: IBUPROFEN 600 MG TAB PO PRN (03:17)
[2025-04-25 07:30] VITALS: BP 110/59; PULSE 65; RESP 16; TEMP 97.8; O2SAT 95
[2025-04-25] MEDS: ACETAMINOPHEN 325 MG TAB PO PRN (08:47)
[2025-04-25] MEDS: PRENATAL VITAMIN TAB PO SCH (08:47)
[2025-04-25 08:51] LABS: Hematocrit 34.6 % (36.0-46.0); Hemoglobin 11.7 g/dL (12.2-16.2); Mean Corpuscular Hemoglobin 28.4 pg (28.0-32.0); Mean Corpuscular Volume 84.1 fL (80.0-100.0); Nucleated Red Blood Cells % 0.0 %
[2025-04-25 11:20] VITALS: BP 101/58; PULSE 71; RESP 16; TEMP 97.8; O2SAT 96
[2025-04-25 15:25] VITALS: BP 104/61; PULSE 66; RESP 18; TEMP 97.9; O2SAT 97
[2025-04-25 19:00] VITALS: BP 114/75; PULSE 67; RESP 15; TEMP 98.1; O2SAT 98
== END 2025-04-25 19:47 | disposition home or self-care (01) | DRG 807 ==
LOC: LDRP 22:00 → EEVIPCON 22:00 → OBSVTOIN 22:23 → LDRP 22:24
PROVIDERS: ADMIT Obstetrics & Gynecology; ATTEND Obstetrics & Gynecology
PROC: 0HQ9XZZ Repair Perineum Skin, External Approach (ICD-10-PCS; principal; 2025-04-24)
PROC: 10E0XZZ Delivery of Products of Conception, External Approach (ICD-10-PCS; 2025-04-24)
PROC: 3E0R3BZ Introduction of Anesthetic Agent into Spinal Canal, Percutaneous Approach (ICD-10-PCS; 2025-04-24)
PROC: 00HU33Z Insertion of Infusion Device into Spinal Canal, Percutaneous Approach (ICD-10-PCS; 2025-04-24)
DX: O70.0 First degree perineal laceration during delivery (principal); Z37.0 Single live birth; Z3A.39 39 weeks gestation of pregnancy
CPT/HCPCS: 36415; 59025; 59409; 62282; 80053; 80307; 81001; 81002; 85025; 85610; 85730; 86780; 86803; 86850; 86900; 86901; 94760; 94762; 96360; 96361; 96365; 96366; 96372; G0378; J2003; J2590